=== PATIENT | female | born 1945 | race Caucasian/White ===

== ENCOUNTER → 2016-05-15 | Outpatient (CLI) | payer MEDICARE ==
[~2016-05-15] MED LIST: ASPI1TAB PO; BENA25TA PO; E-Z-PAQUE 96% w/w SUSP 176GM BTL As Ordered ONE; FISH100049 PO; GABA300C3 PO; GEMF600T PO; INSUH10VL SC; LEVE1INJ5 SC; LISI-538 PO; MAGN1TAB25 PO; METF1000 PO; METO50TA2 PO; MOBI15TA PO; PRAV1TAB39 PO; PRIL20CA PO; VITA10002 PO; VITA100066 PO
--- NOTE | 2016-05-16 13:33 | REP ---
Small bowel follow-through The procedure was performed under the direct supervision of Dr. Lozada. The images were reviewed with Dr. Lozada. The stacker and sorter operator film shows no organomegaly or pathological masses. The intestinal gas pattern is nonspecific. There are vascular calcifications identified. Liquid barium was administered and the barium column was followed through the small bowel to the level of the terminal ileum. Small bowel transit time is approximately 60 minutes. During fluoroscopy gentle palpation shows all loops are freely movable and pliable. There are no fixed or angulated loops. The small bowel mucosal pattern is normal in course and caliber. There is no transition to suggest a partial small bowel obstruction. Spot filming of the terminal ileum shows it to be unremarkable. Impression: Small bowel follow-through examination within normal limits. 27 seconds of fluoro time was utilized for this procedure. Reviewed by JOMAR Nance 05/15/2016 04:35 PSigned by Jong Lozada MD 05/16/2016 01:25 P
== END ==
LOC: M RAD 08:16
PROVIDERS: ATTEND Physician Assistant Medical
DX: D64.9 Anemia, unspecified (principal); R10.13 Epigastric pain

== ENCOUNTER → 2016-05-22 | Outpatient (CLI) | payer MEDICARE ==
[~2016-05-22] VITALS: Ht 157.5 cm; Wt 97.3 kg
[~2016-05-22] MED LIST changes: -BENA25TA PO; +BENA25TA9 PO; -E-Z-PAQUE 96% w/w SUSP 176GM BTL As Ordered ONE; +LABETALOL HCL 100 MG/20 ML VIAL As Ordered ONE; +LIDOCAINE 2% INJ 100 MG/5 ML SDV (FOR ANES.) As Ordered ONE; +NS 1,000 ML IV SCH; -PRIL20CA PO; +PRIL20CA9 PO; +PROPOFOL 200 MG/20 ML VIAL As Ordered ONE; +fentaNYL 100 MCG/2 ML INJECTION (J3010) As Ordered ONE
--- NOTE | 2016-05-22 07:50 | ROOR ---
Patient Name: Lenore Khan Procedure Date: 05/22/2016 7:31 AM Date of : 1945 Age: 71 Room: M OPP Gender: Female Note Status: Finalized Procedure: Upper GI endoscopy Indications: Epigastric abdominal pain, Heartburn Providers: Gabriel DHILLON MD Referring MD: GARIMA Pimentel Requesting Provider: Medicines: Monitored Anesthesia Care Complications: No immediate complications. Procedure: Pre-Anesthesia Assessment: - The heart rate, respiratory rate, oxygen saturations, blood pressure, adequacy of pulmonary ventilation, and response to care were monitored throughout the procedure. The Endoscope was introduced through the mouth, and advanced to the second part of duodenum. The upper GI endoscopy was accomplished without difficulty. The patient tolerated the procedure well. Findings: The esophagus was normal. The stomach was normal. The examined duodenum was normal. Impression: - Normal esophagus. - Normal stomach. - Normal examined duodenum. - No specimens collected. Recommendation: - Continue present medications. Gabriel Dhillon MD Gabriel DHILLON MD 05/22/2016 7:49:58 AM This report has been signed electronically. Number of Addenda: 0 Note Initiated On: 05/22/2016 7:31 AM Estimated Blood Loss: Estimated blood loss: none.
--- NOTE | 2016-05-22 08:04 | ROOR ---
Patient Name: Lenore Khan Procedure Date: 05/22/2016 7:32 AM Date of : 1945 Age: 71 Room: [facility] Gender: Female Note Status: Finalized Procedure: Colonoscopy Indications: High risk colon cancer surveillance: Personal history of colonic polyps, Incidental - Iron deficiency anemia Providers: Gabriel DHILLON MD Referring MD: GARIMA Pimentel Requesting Provider: Medicines: Monitored Anesthesia Care Complications: No immediate complications. Procedure: Pre-Anesthesia Assessment: - The heart rate, respiratory rate, oxygen saturations, blood pressure, adequacy of pulmonary ventilation, and response to care were monitored throughout the procedure. The Colonoscope was introduced through the anus and advanced to the cecum, identified by appendiceal orifice and ileocecal valve. The colonoscopy was performed without difficulty. The patient tolerated the procedure well. The quality of the bowel preparation was excellent. Findings: The perianal and digital rectal examinations were normal. Multiple medium-mouthed diverticula were found in the sigmoid colon. Small Internal Hemorrhoids. (Exam: Complete, Prep: Good or Excellent.) Impression: - (Exam: Complete, Prep: Good or Excellent.) - Mild to moderate diverticulosis in the sigmoid colon. - Small Internal Hemorrhoids. - Normal colonoscopy. - No specimens collected. Recommendation: - Repeat colonoscopy in 5 years for surveillance based on personal history of previous adenomatous polyps. Gabriel Dhillon MD Gabriel DHILLON MD 05/22/2016 8:03:34 AM This report has been signed electronically. Number of Addenda: 0 Note Initiated On: 05/22/2016 7:32 AM Estimated Blood Loss: Estimated blood loss: none.
[2016-05-22 08:35] VITALS: BP 165/86
== END | disposition home or self-care (01) ==
LOC: M OPP 06:42
PROVIDERS: ATTEND Internal Medicine Gastroenterology
DX: Z12.11 Encounter for screening for malignant neoplasm of colon (principal); K57.30 Diverticulosis of large intestine without perforation or abscess without bleeding; K64.8 Other hemorrhoids; R12 Heartburn; D50.9 Iron deficiency anemia, unspecified; I10 Essential (primary) hypertension; E10.9 Type 1 diabetes mellitus without complications; M19.90 Unspecified osteoarthritis, unspecified site; R01.1 Cardiac murmur, unspecified; M51.9 Unspecified thoracic, thoracolumbar and lumbosacral intervertebral disc disorder; Z87.891 Personal history of nicotine dependence; Z79.82 Long term (current) use of aspirin; Z79.899 Other long term (current) drug therapy; Z79.84 Long term (current) use of oral hypoglycemic drugs; Z79.4 Long term (current) use of insulin; Z91.048 Other nonmedicinal substance allergy status; Z91.040 Latex allergy status
CPT/HCPCS: 43235; G0105; J3010

== ENCOUNTER → 2016-08-11 | Outpatient (REF) | payer MEDICARE ==
[~2016-08-11] MED LIST changes: +GABA-282 PO; -GABA300C3 PO; -LABETALOL HCL 100 MG/20 ML VIAL As Ordered ONE; -LIDOCAINE 2% INJ 100 MG/5 ML SDV (FOR ANES.) As Ordered ONE; -NS 1,000 ML IV SCH; -PROPOFOL 200 MG/20 ML VIAL As Ordered ONE; -fentaNYL 100 MCG/2 ML INJECTION (J3010) As Ordered ONE
[2016-08-11 13:29] LABS: MEAN CORPUSCULAR HEMOGLOBIN 27.5 pg (27.0-33.0); MEAN CORPUSCULAR HGB CONC 32.6 g/dl (32.0-36.5); MEAN CORPUSCULAR VOLUME 84.3 fl (80.0-96.0); RED CELL DISTRIBUTION WIDTH 13.2 % (11.5-14.5); WHITE BLOOD COUNT 5.6 K/mm3 (4.0-10.0)
[2016-08-11 13:38] LABS: ALBUMIN 3.7 GM/DL (3.2-5.2); ALBUMIN/GLOBULIN RATIO 1.19 (1.00-1.93); ALKALINE PHOSPHATASE 84 U/L (45-117); ALT/SGPT 18 U/L (12-78); ANION GAP 9 MEQ/L (8-16); AST/SGOT 11 U/L (15-37); BILIRUBIN,TOTAL 0.1 MG/DL (0.2-1.0); BLOOD UREA NITROGEN 32 MG/DL (7-18); CALCIUM LEVEL 9.5 MG/DL (8.8-10.2); CARBON DIOXIDE LEVEL 23 MEQ/L (21-32); CHLORIDE LEVEL 106 MEQ/L (98-107); CREATININE FOR GFR 0.84 MG/DL (0.55-1.02); FERRITIN 29 NG/ML (8-252); GLOMERULAR FILTRATION RATE > 60.0 (>39); GLUCOSE, FASTING 220 MG/DL (83-110); PERCENT SATURATION 12.9 % (13.2-37.4); SODIUM LEVEL 138 MEQ/L (136-145); TOTAL IRON BINDING CAPACITY 566 UG/DL (250-450); TOTAL PROTEIN 6.8 GM/DL (6.4-8.2)
[2016-08-11 13:52] LABS: POTASSIUM SERUM 5.3 MEQ/L (3.5-5.1)
== END ==
LOC: M SFHCADAM 10:00
PROVIDERS: ATTEND Physician Assistant
DX: D64.9 Anemia, unspecified (principal); E78.4 Other hyperlipidemia; E11.21 Type 2 diabetes mellitus with diabetic nephropathy

== ENCOUNTER → 2016-09-15 | Outpatient (CLI) | payer MEDICARE ==
--- NOTE | 2016-09-15 12:22 | REPMRS ---
Patient History The patient states she has not had a clinical breast exam in over a year. Patient is postmenopausal. No known family history of cancer. Benign stereotatic breast biopsy of the left breast. Digital Woman Screen Mammo: September 15, 2016 - Exam #: [id number] Bilateral CC and MLO view(s) were taken. Technologist: Lenore Brock, Technologist Prior study comparison: September 03, 2015, digital woman screen mammo performed at [facility]. September 09, 2013, digital woman screen mammo performed at [facility] to [facility]. FINDINGS: There are scattered fibroglandular densities. There has been no change in the appearance of the mammogram from the prior studies. There is a mild amount of residual fibroglandular tissue which is fairly symmetric. There is no interval development of dominant mass, architectural distortion, or clustered microcalcification suggestive of malignancy. ASSESSMENT: BI-RADS/ACR category 1 mammogram. Negative. Recommendation Routine screening mammogram in 1 year (for women over age 40). This mammogram was interpreted with the aid of an FDA-approved computer-aided dectection system. Electronically Signed By: Jong Lozada MD 09/15/16 [id number]
== END ==
LOC: M WHC 10:42
PROVIDERS: ATTEND Physician Assistant
DX: Z12.31 Encounter for screening mammogram for malignant neoplasm of breast (principal)

== ENCOUNTER → 2017-05-21 | Outpatient (REF) | payer MEDICARE ==
[2017-05-21 13:15] LABS: HEMATOCRIT 35.1 % (36.0-47.0); HEMOGLOBIN 11.3 g/dl (12.0-16.0); MEAN CORPUSCULAR HEMOGLOBIN 27.6 pg (27.0-33.0); MEAN CORPUSCULAR HGB CONC 32.2 g/dl (32.0-36.5); MEAN CORPUSCULAR VOLUME 85.6 fl (80.0-96.0); PLATELET COUNT, AUTOMATED 336 10^3/uL (150-450); RED CELL DISTRIBUTION WIDTH 12.5 % (11.5-14.5)
[2017-05-21 14:00] LABS: TOTAL 25(OH) VITAMIN D 38.4 NG/ML (30.0-100.0); VITAMIN B12 LEVEL 681 PG/ML
[2017-05-21 14:01] LABS: FOLATE 21.5 NG/ML
[2017-05-21 14:06] LABS: MAU/CREAT RATIO 171.5 MCG/MG (0.0-30.0)
[2017-05-21 14:17] LABS: ALBUMIN 4.1 GM/DL (3.2-5.2); ALBUMIN/GLOBULIN RATIO 1.21 (1.00-1.93); ALKALINE PHOSPHATASE 85 U/L (45-117); ALT/SGPT 19 U/L (12-78); ANION GAP 7 MEQ/L (8-16); AST/SGOT 13 U/L (7-37); BILIRUBIN,TOTAL 0.2 MG/DL (0.2-1.0); BLOOD UREA NITROGEN 31 MG/DL (7-18); CALCIUM LEVEL 10.1 MG/DL (8.8-10.2); CARBON DIOXIDE LEVEL 26 MEQ/L (21-32); CHLORIDE LEVEL 108 MEQ/L (98-107); CHOLESTEROL LEVEL 222 MG/DL (<200); CREATININE FOR GFR 0.75 MG/DL (0.55-1.02); FREE T4 0.95 NG/DL (0.76-1.46); GLOMERULAR FILTRATION RATE > 60.0 (>39); GLUCOSE, FASTING 169 MG/DL (83-110); HDL CHOLESTEROL 60 MG/DL (>40); LDL CHOLESTEROL 116.6 MG/DL (<100); NON-HDL-C 162 MG/DL; SODIUM LEVEL 141 MEQ/L (136-145); TOTAL PROTEIN 7.5 GM/DL (6.4-8.2); TRIGLYCERIDES LEVEL 227 MG/DL (<150)
[2017-05-21 14:24] LABS: POTASSIUM SERUM 5.2 MEQ/L (3.5-5.1)
[2017-05-21 14:55] LABS: ESTIMATED AVERAGE GLUCOSE 171 MG/DL (60-110); HEMOGLOBIN A1c 7.6 %
== END ==
LOC: M SFHCADAM 09:56
DX: E11.42 Type 2 diabetes mellitus with diabetic polyneuropathy (principal); E78.4 Other hyperlipidemia; I11.9 Hypertensive heart disease without heart failure; Z13.820 Encounter for screening for osteoporosis; M15.0 Primary generalized (osteo)arthritis; E55.9 Vitamin D deficiency, unspecified
CPT/HCPCS: 82746

== ENCOUNTER 2017-05-25 10:01 | Emergency (ER) | payer MEDICARE ==
[2017-05-25 11:45] LABS: INR 0.95; PROTHROMBIN TIME 12.8 SECONDS (12.4-14.5)
[2017-05-25 11:46] LABS: PARTIAL THROMBOPLASTIN TIME 27.5 SECONDS (26.8-37.9)
[2017-05-25 11:48] LABS: BASO % 0.3 % (0.0-1.0); EOS # 0.2 10^3/uL (0.0-0.50); EOS % 2.1 % (0.0-3.0); HEMOGLOBIN 10.6 g/dl (12.0-16.0); IMMATURE GRANULOCYTE % 0.3 % (0-0); LYMPH # 2.1 10^3/uL (1.5-4.5); MEAN CORPUSCULAR HEMOGLOBIN 27.6 pg (27.0-33.0); MEAN CORPUSCULAR HGB CONC 33.1 g/dl (32.0-36.5); MEAN CORPUSCULAR VOLUME 83.3 fl (80.0-96.0); MONO # 0.4 10^3/uL (0.0-0.8); MONO % 4.6 % (0.0-5.0); NEUTROPHILS # 6.3 10^3/uL (1.8-7.7); NEUTROPHILS % 69.7 % (36.0-66.0); PLATELET COUNT, AUTOMATED 298 10^3/uL (150-450); RED BLOOD COUNT 3.84 10^6/uL (4.00-5.40); RED CELL DISTRIBUTION WIDTH 12.7 % (11.5-14.5)
[2017-05-25 11:53] LABS: LACTIC ACID SEPSIS PROTOCOL 1.3 MMOL/L (0.4-2.0)
[2017-05-25 11:54] LABS: ALBUMIN 3.6 GM/DL (3.2-5.2); ALBUMIN/GLOBULIN RATIO 1.09 (1.00-1.93); ALKALINE PHOSPHATASE 75 U/L (45-117); ALT/SGPT 15 U/L (12-78); ANION GAP 8 MEQ/L (8-16); AST/SGOT 8 U/L (7-37); BILIRUBIN,DIRECT < 0.1 MG/DL (0.0-0.2); BILIRUBIN,TOTAL 0.1 MG/DL (0.2-1.0); BLOOD UREA NITROGEN 32 MG/DL (7-18); CALCIUM LEVEL 9.8 MG/DL (8.8-10.2); CARBON DIOXIDE LEVEL 22 MEQ/L (21-32); CHLORIDE LEVEL 109 MEQ/L (98-107); CREATININE FOR GFR 0.78 MG/DL (0.55-1.02); GLOMERULAR FILTRATION RATE > 60.0 (>39); GLUCOSE, FASTING 221 MG/DL (83-110); LIPASE 241 U/L (73-393); POTASSIUM SERUM 5.1 MEQ/L (3.5-5.1); SODIUM LEVEL 139 MEQ/L (136-145); TOTAL PROTEIN 6.9 GM/DL (6.4-8.2)
[2017-05-25] MEDS ORDERED: ISOVUE-370 76% 100ML VIAL (Q9967) As Ordered (11:59)
[2017-05-25 12:38] LABS: KETONE, URINE AUTO RFX NEGATIVE (NEGATIVE); MUCUS, URINE RFX SMALL (NEGATIVE); NITRITE, URINE AUTO RFX NEGATIVE (NEGATIVE); RBC, URINE AUTO RFX 1 /HPF (0-3); SQUAM EPITHELIAL CELL UR AURFX 0 /HPF (0-6); WBC, URINE AUTO RFX 8 /HPF (0-3)
[2017-05-25 12:39] LABS: LEUKOCYTE ESTERASE UR AUTO RFX 1+ (NEGATIVE)
[2017-05-25] MEDS: KETOROLAC 30 MG/ML VIAL (J1885) IV (14:00)
== END 2017-05-25 14:59 | disposition home or self-care (01) ==
LOC: M ED 10:01
DX: R10.9 Unspecified abdominal pain (principal); R00.1 Bradycardia, unspecified; K76.0 Fatty (change of) liver, not elsewhere classified; K57.30 Diverticulosis of large intestine without perforation or abscess without bleeding; E11.9 Type 2 diabetes mellitus without complications; I10 Essential (primary) hypertension; M19.90 Unspecified osteoarthritis, unspecified site; Z79.84 Long term (current) use of oral hypoglycemic drugs; Z79.4 Long term (current) use of insulin; Z79.899 Other long term (current) drug therapy; Z79.82 Long term (current) use of aspirin; Z91.040 Latex allergy status; Z91.018 Allergy to other foods; Z86.79 Personal history of other diseases of the circulatory system; Z98.890 Other specified postprocedural states; Z87.891 Personal history of nicotine dependence; Z82.49 Family history of ischemic heart disease and other diseases of the circulatory system; Z84.1 Family history of disorders of kidney and ureter; Z82.3 Family history of stroke
CPT/HCPCS: Q9967

== ENCOUNTER → 2017-09-21 | Outpatient (CLI) | payer MEDICARE | LOC: M WHC 08:34 | DX: Z12.31 Encounter for screening mammogram for malignant neoplasm of breast (principal); Z13.820 Encounter for screening for osteoporosis; M85.852 Other specified disorders of bone density and structure, left thigh; M85.851 Other specified disorders of bone density and structure, right thigh | CPT/HCPCS: 77067 ==

== ENCOUNTER → 2017-12-24 | Outpatient (REF) | payer MEDICARE ==
[2017-12-24 19:59] LABS: ALBUMIN 3.9 GM/DL (3.2-5.2); ALBUMIN/GLOBULIN RATIO 1.11 (1.00-1.93); ALKALINE PHOSPHATASE 68 U/L (45-117); ALT/SGPT 20 U/L (12-78); ANION GAP 9 MEQ/L (8-16); AST/SGOT 10 U/L (7-37); BILIRUBIN,TOTAL 0.2 MG/DL (0.2-1.0); BLOOD UREA NITROGEN 29 MG/DL (7-18); CALCIUM LEVEL 9.6 MG/DL (8.8-10.2); CARBON DIOXIDE LEVEL 25 MEQ/L (21-32); CHLORIDE LEVEL 110 MEQ/L (98-107); CREATININE FOR GFR 0.83 MG/DL (0.55-1.30); GLOMERULAR FILTRATION RATE > 60.0 (>39); GLUCOSE, FASTING 118 MG/DL (70-100); POTASSIUM SERUM 5.1 MEQ/L (3.5-5.1); SODIUM LEVEL 144 MEQ/L (136-145); TOTAL PROTEIN 7.4 GM/DL (6.4-8.2)
[2017-12-24 20:06] LABS: HEMATOCRIT 36.3 % (36.0-47.0); HEMOGLOBIN 11.3 g/dl (12.0-15.5); MEAN CORPUSCULAR HEMOGLOBIN 26.5 pg (27.0-33.0); MEAN CORPUSCULAR HGB CONC 31.1 g/dl (32.0-36.5); MEAN CORPUSCULAR VOLUME 85.2 fl (80.0-96.0); PLATELET COUNT, AUTOMATED 321 10^3/uL (150-450); RED BLOOD COUNT 4.26 10^6/uL (4.00-5.40); RED CELL DISTRIBUTION WIDTH 13.2 % (11.5-14.5)
[2017-12-24 20:14] LABS: FOLATE > 24.0 NG/ML; VITAMIN B12 LEVEL 616 PG/ML
[2017-12-24 20:18] LABS: ESTIMATED AVERAGE GLUCOSE 166 MG/DL (60-110); HEMOGLOBIN A1c 7.4 %
== END ==
LOC: M SFHCADAM 11:46
DX: E11.42 Type 2 diabetes mellitus with diabetic polyneuropathy (principal); E78.4 Other hyperlipidemia; D51.8 Other vitamin B12 deficiency anemias
CPT/HCPCS: 82746

== ENCOUNTER → 2018-01-25 | Outpatient (REF) | payer MEDICARE | LOC: M LAB REF 12:22 | DX: R35.0 Frequency of micturition (principal) | CPT/HCPCS: 87086 ==

== ENCOUNTER → 2018-03-23 | Outpatient (REF) | payer MEDICARE ==
[2018-03-23 19:09] LABS: ANION GAP 10 MEQ/L (8-16); BLOOD UREA NITROGEN 36 MG/DL (7-18); CALCIUM LEVEL 10.3 MG/DL (8.8-10.2); CARBON DIOXIDE LEVEL 24 MEQ/L (21-32); CHLORIDE LEVEL 105 MEQ/L (98-107); CREATININE FOR GFR 1.07 MG/DL (0.55-1.30); GLOMERULAR FILTRATION RATE 53.4 (>39); GLUCOSE, FASTING 121 MG/DL (70-100); POTASSIUM SERUM 4.9 MEQ/L (3.5-5.1); SODIUM LEVEL 139 MEQ/L (136-145)
[2018-03-23 19:43] LABS: ESTIMATED AVERAGE GLUCOSE 174 MG/DL (60-110); HEMOGLOBIN A1c 7.7 %
== END ==
LOC: M SFHCADAM 11:38
DX: E11.42 Type 2 diabetes mellitus with diabetic polyneuropathy (principal); I11.9 Hypertensive heart disease without heart failure
CPT/HCPCS: 83036

== ENCOUNTER → 2018-06-16 | Outpatient (REF) | payer MEDICARE ==
[~2018-06-16] MED LIST changes: +BENA25TA10 PO; -BENA25TA9 PO; -GABA-282 PO; +GABA-843 PO; -GEMF600T PO; +GEMF600T5 PO; +HUMA100I3 SC; -METF1000 PO; +METF10004 PO; -METO50TA2 PO; +METO50TA7 PO
[2018-06-16 13:23] LABS: BLOOD UREA NITROGEN 36 MG/DL (7-18); CALCIUM LEVEL 10.4 MG/DL (8.8-10.2); CARBON DIOXIDE LEVEL 24 MEQ/L (21-32); CHLORIDE LEVEL 104 MEQ/L (98-107); CREATININE FOR GFR 0.89 MG/DL (0.55-1.30); GLOMERULAR FILTRATION RATE > 60.0 (>39); GLUCOSE, FASTING 250 MG/DL (70-100); POTASSIUM SERUM 4.7 MEQ/L (3.5-5.1); SODIUM LEVEL 137 MEQ/L (136-145)
[2018-06-16 13:24] LABS: ALBUMIN 3.9 GM/DL (3.2-5.2); ALT/SGPT 20 U/L (12-78); BILIRUBIN,TOTAL 0.2 MG/DL (0.2-1.0); TOTAL PROTEIN 6.9 GM/DL (6.4-8.2)
[2018-06-16 13:32] LABS: HEMOGLOBIN A1c 6.9 %
== END ==
LOC: M SFHCADAM 09:01
PROVIDERS: ATTEND Physician Assistant
DX: E11.42 Type 2 diabetes mellitus with diabetic polyneuropathy (principal); I11.9 Hypertensive heart disease without heart failure; G62.9 Polyneuropathy, unspecified

== ENCOUNTER → 2019-01-03 | Outpatient (REF) | payer MEDICARE ==
[~2019-01-03] MED LIST changes: -ASPI1TAB PO; +ASPI81TA26 PO; +CYAN100049 PO; -MAGN1TAB25 PO; +MAGN1TAB26 PO; -VITA10002 PO
[2019-01-03 13:40] LABS: ALBUMIN 3.8 GM/DL (3.2-5.2); BILIRUBIN,TOTAL 0.2 MG/DL (0.2-1.0); CALCIUM LEVEL 10.4 MG/DL (8.8-10.2); CHOLESTEROL RISK RATIO 4.102 (<5); CREATININE FOR GFR 0.98 MG/DL (0.55-1.30); FREE T4 0.92 NG/DL (0.76-1.46); GLOMERULAR FILTRATION RATE 58.9 (>39); POTASSIUM SERUM 4.8 MEQ/L (3.5-5.1); THYROID STIMULATING HORMONE 0.901 uIU/ML (0.358-3.740); TOTAL 25(OH) VITAMIN D 31.5 NG/ML (30.0-100.0); TOTAL PROTEIN 7.1 GM/DL (6.4-8.2)
[2019-01-03 13:58] LABS: HEMOGLOBIN A1c 7.2 %
== END ==
LOC: M SFHCADAM 09:00
PROVIDERS: ATTEND Physician Assistant
DX: E78.49 Other hyperlipidemia (principal); E11.42 Type 2 diabetes mellitus with diabetic polyneuropathy; E55.9 Vitamin D deficiency, unspecified

== ENCOUNTER → 2019-06-09 | Outpatient (REF) | payer OTHER ==
[2019-06-09 13:12] LABS: ALBUMIN 4.2 GM/DL (3.2-5.2); ALT/SGPT 18 U/L (12-78); BILIRUBIN,TOTAL 0.2 MG/DL (0.2-1.0); BLOOD UREA NITROGEN 40 MG/DL (7-18); CALCIUM LEVEL 10.8 MG/DL (8.8-10.2); CARBON DIOXIDE LEVEL 25 MEQ/L (21-32); CHLORIDE LEVEL 106 MEQ/L (98-107); CREATININE FOR GFR 0.95 MG/DL (0.55-1.30); GLOMERULAR FILTRATION RATE > 60.0 (>39); GLUCOSE, FASTING 116 MG/DL (70-100); POTASSIUM SERUM 5.1 MEQ/L (3.5-5.1); SODIUM LEVEL 139 MEQ/L (136-145); TOTAL PROTEIN 7.5 GM/DL (6.4-8.2)
[2019-06-09 14:07] LABS: HEMOGLOBIN A1c 7.1 %
== END ==
LOC: M SFHCADAM 11:25
PROVIDERS: ATTEND Physician Assistant
DX: E11.21 Type 2 diabetes mellitus with diabetic nephropathy (principal); E11.42 Type 2 diabetes mellitus with diabetic polyneuropathy

== ENCOUNTER → 2019-06-16 | Outpatient (REF) | payer OTHER ==
[2019-06-16 15:06] LABS: ALBUMIN 4.1 GM/DL (3.2-5.2); BILIRUBIN,TOTAL 0.2 MG/DL (0.2-1.0); CALCIUM LEVEL 9.8 MG/DL (8.8-10.2); CREATININE FOR GFR 1.01 MG/DL (0.55-1.30); GLOMERULAR FILTRATION RATE 56.7 (>39); POTASSIUM SERUM 4.6 MEQ/L (3.5-5.1); TOTAL PROTEIN 7.5 GM/DL (6.4-8.2)
[2019-06-16 15:11] LABS: FREE T4 0.99 NG/DL (0.76-1.46); THYROID STIMULATING HORMONE 0.978 uIU/ML (0.358-3.740)
[2019-06-17 11:41] LABS: PTH INTACT 63.8 PG/ML (18.5-88.0); TOTAL 25(OH) VITAMIN D 23.8 NG/ML (30.0-100.0)
== END ==
LOC: M SFHCADAM 09:29
PROVIDERS: ATTEND Physician Assistant
DX: E83.52 Hypercalcemia (principal); E55.9 Vitamin D deficiency, unspecified; E11.21 Type 2 diabetes mellitus with diabetic nephropathy
CPT/HCPCS: 80053; 82306; 83970; 84439; 84443; G0463

== ENCOUNTER → 2019-09-02 | Outpatient (REF) | payer OTHER | LOC: M SFHCADAM 13:11 | PROVIDERS: ATTEND Physician Assistant | DX: R10.32 Left lower quadrant pain (principal) ==

== ENCOUNTER → 2019-09-02 | Outpatient (CLI) | payer OTHER ==
[~2019-09-02] MED LIST changes: +GASTROGRAFIN SOLUTION 30ML (Q9963) As Ordered ONE; +ISOVUE-370 76% 100ML VIAL As Ordered ONE
[2019-09-02 12:16] LABS: BASO # 0.1 10^3/uL (0.0-0.2); BASO % 0.7 % (0.0-1.0); EOS # 0.4 10^3/uL (0.0-0.5); EOS % 3.9 % (0.0-3.0); HEMATOCRIT 37.6 % (36.0-47.0); HEMOGLOBIN 12.3 g/dl (12.0-15.5); LYMPH # 2.8 10^3/uL (1.5-5.0); LYMPH % 30.9 % (24.0-44.0); MEAN CORPUSCULAR HEMOGLOBIN 28.7 pg (27.0-33.0); MEAN CORPUSCULAR HGB CONC 32.7 g/dl (32.0-36.5); MEAN CORPUSCULAR VOLUME 87.6 fl (80.0-96.0); MONO # 0.4 10^3/uL (0.0-0.8); MONO % 4.5 % (0.0-5.0); NEUTROPHILS # 5.4 10^3/uL (1.5-8.5); NEUTROPHILS % 59.4 % (36.0-66.0); PLATELET COUNT, AUTOMATED 347 10^3/uL (150-450); RED BLOOD COUNT 4.29 10^6/uL (4.00-5.40)
[2019-09-02 12:42] LABS: ALBUMIN 4.2 GM/DL (3.2-5.2); BILIRUBIN,TOTAL 0.2 MG/DL (0.2-1.0); CALCIUM LEVEL 10.5 MG/DL (8.8-10.2); CREATININE FOR GFR 1.08 MG/DL (0.55-1.30); GLOMERULAR FILTRATION RATE 52.5 (>39); POTASSIUM SERUM 5.1 MEQ/L (3.5-5.1)
--- NOTE | 2019-09-02 17:55 | REP ---
CT ABDOMEN/PELVIS WITH ORAL AND IV CONTRAST: TECHNIQUE: Axial contrast enhanced images from the lung bases to the pubic symphysis using 100 mL Isovue 370 intravenous contrast material with multiplanar reformations. COMPARISON: 05/25/2017 No infiltrate is seen in the visualized lung bases. There appears to be some mild fatty infiltration of the liver along the gallbladder fossa. Spleen is normal in size with no intrinsic abnormality. The adrenal glands are unremarkable. The pancreas is unremarkable. There is no hydroureteronephrosis. Small cyst is seen in the lower pole of the right kidney. There is mild atherosclerotic calcification of the abdominal aorta without aneurysm. There is no adenopathy. There is no free air or free fluid. No bowel wall thickening is seen. There is sigmoid diverticulosis without acute diverticulitis. There is no pelvic mass. The patient has had a hysterectomy. There is mild distention of the urinary bladder which appears grossly unremarkable. There are degenerative changes of the spine. IMPRESSION: No acute intra-abdominal abnormality, as discussed above. Electronically Signed by Jong Lozada MD 09/02/2019 07:28 P
== END ==
LOC: M RAD 11:42
PROVIDERS: ATTEND Physician Assistant
DX: K57.30 Diverticulosis of large intestine without perforation or abscess without bleeding (principal); N28.1 Cyst of kidney, acquired; R10.32 Left lower quadrant pain
CPT/HCPCS: 36415; 74177; 80053; 85025; 87086; Q9963; Q9967

== ENCOUNTER → 2019-09-07 | Outpatient (CLI) | payer OTHER ==
[~2019-09-07] MED LIST changes: -GASTROGRAFIN SOLUTION 30ML (Q9963) As Ordered ONE; -ISOVUE-370 76% 100ML VIAL As Ordered ONE
--- NOTE | 2019-09-07 11:50 | REP ---
LUMBAR SPINE SERIES: Five views. HISTORY: Lumbar pain. FINDINGS: There is a mild levoconvex curvature in the lumbar spine on the AP radiograph. There is advanced degenerative disc disease with spurring at the L2-3 level. This has progressed considerably since the October 25, 2012 prior study. Lumbar vertebral body heights are preserved. The previous study demonstrated a degenerative L4-5 spondylolisthesis. This is not seen on today's radiographs. There is a mild retrolisthesis grade 1 at L5-S1 today, 3 mm in diameter. There are degenerative disc changes at L4-5 L3-4 L2-3 and L1-2. A vacuum phenomenon is visible at the L2-3 and L3-4 disc space levels. Vascular calcification is noted in a normal caliber aorta. No bony destructive lesion is seen. Sacrum and SI joints are intact. Facet hypertrophy and joint space narrowing is visible bilaterally at L4-5 and L5-S1. IMPRESSION: Progressive degenerative disc changes most pronounced at the L2-3 and L5-S1. There is a mild retrolisthesis L5-S1. The previously noted L4-5 spondylolisthesis is not apparent today. Electronically Signed by Filiberto Dominguez MD 09/07/2019 11:52 A
== END ==
LOC: M ADAMS 08:37
PROVIDERS: ATTEND Physician Assistant
DX: M51.36 Other intervertebral disc degeneration, lumbar region (principal); M51.37 Other intervertebral disc degeneration, lumbosacral region; M25.78 Osteophyte, vertebrae; M54.5 Low back pain

== ENCOUNTER → 2019-09-07 | Outpatient (REF) | payer OTHER ==
[2019-09-07 13:22] LABS: C REACTIVE PROTEIN QUANTITATIV 0.84 MG/DL (0.00-0.30)
[2019-09-07 13:34] LABS: APPEARANCE, URINE CLEAR (CLEAR); BACTERIA, URINE AUTO NEGATIVE (NEGATIVE); BILIRUBIN, URINE AUTO NEGATIVE (NEGATIVE); BLOOD, URINE BLOOD NEGATIVE (NEGATIVE); COLOR, URINE YELLOW (YELLOW); GLUCOSE, URINE (UA) AUTO 3+ mg/dL (NEGATIVE); KETONE, URINE AUTO NEGATIVE (NEGATIVE); LEUKOCYTE ESTERASE, URINE AUTO 1+ (NEGATIVE); NITRITE, URINE AUTO NEGATIVE (NEGATIVE); PROTEIN, URINE AUTO NEGATIVE (NEGATIVE); PTH INTACT 68.2 PG/ML (18.5-88.0); RBC, URINE AUTO 0 /HPF (0-3); SPECIFIC GRAVITY URINE AUTO 1.015 (1.002-1.035); SQUAMOUS EPITHELIAL CELL UR AU 0 /HPF (0-6); TOTAL 25(OH) VITAMIN D 24.9 NG/ML (30.0-100.0); UROBILINOGEN, URINE AUTO 0.2 mg/dL (0.0-2.0); WBC, URINE AUTO 2 /HPF (0-3)
[2019-09-09 00:06] LABS: FREE KAPPA LIGHT CHAINS SERUM 11.9 mg/L (3.3-19.4); KAPPA/LAMBDA RATIO SERUM 1.32 (0.26-1.65)
== END ==
LOC: M SFHCADAM 08:23
PROVIDERS: ATTEND Physician Assistant
DX: M54.5 Low back pain (principal); E83.52 Hypercalcemia

== ENCOUNTER → 2019-09-19 | Outpatient (REF) | payer OTHER | LOC: M LAB REF 18:04 | PROVIDERS: ATTEND Dermatology | DX: C44.722 Squamous cell carcinoma of skin of right lower limb, including hip (principal) ==

== ENCOUNTER → 2019-09-20 | Outpatient (REF) | payer OTHER ==
[2019-09-20 18:11] LABS: C REACTIVE PROTEIN QUANTITATIV < 0.30 MG/DL (0.00-0.30); CHOLESTEROL LEVEL 203 MG/DL (<200); HDL CHOLESTEROL 51 MG/DL (>40); HEMATOCRIT 35.9 % (36.0-47.0); HEMOGLOBIN 11.4 g/dl (12.0-15.5); MEAN CORPUSCULAR HEMOGLOBIN 28.5 pg (27.0-33.0); MEAN CORPUSCULAR HGB CONC 31.8 g/dl (32.0-36.5); MEAN CORPUSCULAR VOLUME 89.8 fl (80.0-96.0); NON-HDL-C 152 MG/DL; PLATELET COUNT, AUTOMATED 295 10^3/uL (150-450); TRIGLYCERIDES LEVEL 456 MG/DL (<150); WHITE BLOOD COUNT 7.4 10^3/uL (4.0-10.0)
[2019-09-20 18:29] LABS: HEMOGLOBIN A1c 7.7 %
[2019-09-20 19:53] LABS: ERYTHROCYTE SEDIMENTATION RATE 52 mm/hr (0-30)
[2019-09-23 00:10] LABS: FREE KAPPA LIGHT CHAINS SERUM 13.4 mg/L (3.3-19.4); FREE LAMBDA LIGHT CHAINS SERUM 10.9 mg/L (5.7-26.3); KAPPA/LAMBDA RATIO SERUM 1.23 (0.26-1.65)
== END ==
LOC: M SFHCADAM 13:43
PROVIDERS: ATTEND Physician Assistant
DX: R10.32 Left lower quadrant pain (principal); E11.21 Type 2 diabetes mellitus with diabetic nephropathy; E55.9 Vitamin D deficiency, unspecified; R79.82 Elevated C-reactive protein (CRP); M51.36 Other intervertebral disc degeneration, lumbar region

== ENCOUNTER → 2019-10-05 | Outpatient (CLI) | payer OTHER ==
[~2019-10-05] MED LIST changes: +PROHANCE 279.3MG/ML 15ML VIAL As Ordered ONE
--- NOTE | 2019-10-06 09:54 | REP ---
MRI LUMBAR SPINE WITHOUT CONTRAST FOLLOWED BY WITH CONTRAST: HISTORY: Low back pain. Lumbar radicular pain. Elevated sed rate. Comparison lumbar spine radiographs are from September 07, 2019. Comparison MRI study October 12, 2015. TECHNIQUE: Sagittal and axial T1- and T2-weighted scans are acquired in the usual fashion with and without fat saturation. Sequences include spin echo, turbo spin-echo, and STIR imaging sequences. Gadolinium enhancement dose is 8 mL of intravenous ProHance. MRI FINDINGS: Lumbar vertebral body heights are preserved. There is some straightening. Degenerative spondylosis changes are again noted. The tip of the conus medullaris is normal in position and appearance at T12-L1. No extra vertebral abnormality is observed. Normal caliber aorta is seen. Axial and sagittal images taken at L1-L2 disc level show minimal disc bulging effacing the ventral subarachnoid space. No spinal stenosis or foraminal narrowing is seen. L2-L3, there is degenerative narrowing of the disc, a 2 mm retrolisthesis, and diffuse disc bulging. There is posterior osteophytic ridging. There is right neural foraminal narrowing due to a right foraminal disc bulge. This appears slightly more prominent today compared to the 2016 prior MRI study. No spinal stenosis is seen. There is minimal facet and ligamentum flavum hypertrophy. At L3-L4, there is degenerative disc narrowing. Mild central canal stenosis is present due to diffuse disc bulging, ligamentum flavum hypertrophy, and mild facet hypertrophy. There is mild bilateral neural foraminal narrowing due to disc bulging and facet hypertrophy. The mid line AP dimension of the thecal sac at L3-4 is 8 mm. The L3-4 findings are felt to be unchanged from the 2016 exam. At L4-5, there is a degenerative 4 mm spondylolisthesis. No spondylolysis is seen. There is moderate central canal stenosis due to diffuse disc bulging, prominent facet and ligamentum flavum hypertrophy, and the listhesis. No nerve root compression is visible. Midline AP dimension of the thecal sac L4-5 is 8 mm. At L5-S1, there is mild diffuse disc bulging. Moderate facet hypertrophy is present bilaterally. There is left-sided neural foraminal narrowing due to disc bulging, discogenic spurring, and facet hypertrophy. The central canal is mildly narrowed and L5-S1. Left-sided foraminal narrowing at L5-S1 is a little more prominent. Post gadolinium enhanced sequence demonstrates mild enhancement along the right foraminal disc bulging at L2-3 where there is foraminal narrowing. IMPRESSION: Degenerative spondylosis changes somewhat more advanced than on the 2016 study with multilevel neural foraminal narrowing as above including left L5-S1 and right L2-3. Electronically Signed by Filiberto Dominguez MD 10/06/2019 10:00 A
== END ==
LOC: M RAD 15:19
PROVIDERS: ATTEND Physician Assistant
DX: M51.16 Intervertebral disc disorders with radiculopathy, lumbar region (principal); M47.26 Other spondylosis with radiculopathy, lumbar region
CPT/HCPCS: 72158; A9576

== ENCOUNTER → 2019-10-17 | Outpatient (REF) | payer OTHER ==
[~2019-10-17] MED LIST changes: -PROHANCE 279.3MG/ML 15ML VIAL As Ordered ONE
== END ==
LOC: M LAB REF 13:00
PROVIDERS: ATTEND Dermatology
DX: L90.5 Scar conditions and fibrosis of skin (principal)

== ENCOUNTER → 2019-11-17 | Outpatient (REF) | payer OTHER | LOC: M LAB REF 17:32 | PROVIDERS: ATTEND Dermatology | DX: Z94.5 Skin transplant status (principal) ==

== ENCOUNTER → 2020-03-30 | Outpatient (REF) | payer OTHER ==
[2020-03-30 13:18] LABS: CALCIUM LEVEL 10.2 MG/DL (8.8-10.2); CREATININE FOR GFR 1.24 MG/DL (0.55-1.30); GLOMERULAR FILTRATION RATE 44.8 (>39); POTASSIUM SERUM 4.9 MEQ/L (3.5-5.1)
[2020-03-30 13:19] LABS: BILIRUBIN,TOTAL 0.1 MG/DL (0.2-1.0); CHOLESTEROL RISK RATIO 3.875 (<5); TOTAL PROTEIN 7.4 GM/DL (6.4-8.2)
[2020-03-30 13:50] LABS: HEMOGLOBIN A1c 7.1 %
== END ==
LOC: M LAB REF 12:47 → M LABDRWAD 12:47
PROVIDERS: ATTEND Physician Assistant
DX: E11.9 Type 2 diabetes mellitus without complications (principal); E78.5 Hyperlipidemia, unspecified; I11.9 Hypertensive heart disease without heart failure

== ENCOUNTER → 2020-04-10 | Outpatient (REF) | payer OTHER | LOC: M SFHCADAM 12:29 | PROVIDERS: ATTEND Physician Assistant | DX: R19.7 Diarrhea, unspecified (principal) ==

== ENCOUNTER → 2020-05-01 | Outpatient (REF) | payer OTHER ==
[2020-05-01 12:39] LABS: BASO # 0.1 10^3/uL (0.0-0.2); BASO % 0.9 % (0.0-1.0); EOS # 1.3 10^3/uL (0.0-0.5); EOS % 15.5 % (0.0-3.0); HEMATOCRIT 36.1 % (36.0-47.0); LYMPH # 2.6 10^3/uL (1.5-5.0); LYMPH % 32.1 % (24.0-44.0); MEAN CORPUSCULAR HEMOGLOBIN 27.2 pg (27.0-33.0); MEAN CORPUSCULAR HGB CONC 30.5 g/dl (32.0-36.5); MEAN CORPUSCULAR VOLUME 89.4 fl (80.0-96.0); MONO # 0.4 10^3/uL (0.0-0.8); MONO % 5.3 % (0.0-5.0); NEUTROPHILS # 3.7 10^3/uL (1.5-8.5); NEUTROPHILS % 45.3 % (36.0-66.0); PLATELET COUNT, AUTOMATED 291 10^3/uL (150-450); RED BLOOD COUNT 4.04 10^6/uL (4.00-5.40); WHITE BLOOD COUNT 8.1 10^3/uL (4.0-10.0)
[2020-05-01 13:10] LABS: ALBUMIN 3.8 GM/DL (3.2-5.2); BILIRUBIN,TOTAL 0.1 MG/DL (0.2-1.0); CALCIUM LEVEL 9.8 MG/DL (8.8-10.2); CREATININE FOR GFR 1.14 MG/DL (0.55-1.30); GLOMERULAR FILTRATION RATE 49.2 (>39); POTASSIUM SERUM 5.2 MEQ/L (3.5-5.1); TOTAL PROTEIN 6.9 GM/DL (6.4-8.2)
== END ==
LOC: M SFHCADAM 11:10
PROVIDERS: ATTEND Physician Assistant
DX: A04.72 Enterocolitis due to Clostridium difficile, not specified as recurrent (principal); R19.7 Diarrhea, unspecified

== ENCOUNTER → 2020-05-15 | Outpatient (REF) | payer OTHER ==
[~2020-05-15] MED LIST changes: +GABA-282 PO; -GABA-843 PO; -LISI-538 PO; +LISI20TA33 PO
== END ==
LOC: M SFHCADAM 05-14 12:27
PROVIDERS: ATTEND Physician Assistant
DX: R19.7 Diarrhea, unspecified (principal)

== ENCOUNTER → 2020-05-16 | Outpatient (CLI) | payer MEDICARE ==
[~2020-05-16] MED LIST changes: -GABA-282 PO; +GABA-843 PO; +GASTROGRAFIN SOLUTION 30ML (Q9963) As Ordered ONE; +ISOVUE-370 76% 100ML VIAL As Ordered ONE; +LISI-538 PO; -LISI20TA33 PO
--- NOTE | 2020-05-16 12:39 | REP ---
INDICATION: C DIF. COMPARISON: 09/02/2019 TECHNIQUE: Axial contrast-enhanced images from the lung bases to the pubic symphysis using oral and 100 cc Isovue 370 intravenous contrast material. Precontrast images of the abdomen along with coronal and sagittal reformations obtained. This CT examination was performed using the following dose reduction techniques: Automated exposure control, adjustment of mA and/or kv according to the patient's size, and the use of iterative reconstruction technique. FINDINGS: Liver, spleen, pancreas, gallbladder, bilateral adrenal glands and kidneys are normal. The enteric system including stomach, small, and large bowel appears normal. No evidence for obstruction or acute inflammatory process. Normal cecum and terminal ileum identified in the right lower quadrant. Pelvis demonstrates normal bladder and evidence for prior hysterectomy. No ascites. No free air. No intraperitoneal or retroperitoneal adenopathy. Abdominal aorta and vasculature appear normal. Musculoskeletal structures are intact and without acute osseous abnormality. IMPRESSION: No acute abdominopelvic pathology appreciated. Normal appearance of the enteric system without acute infectious/inflammatory process. <Electronically signed by Christofer Granda > 05/16/20 [id number]
== END ==
LOC: M RAD 10:41
PROVIDERS: ATTEND Physician Assistant
DX: A04.72 Enterocolitis due to Clostridium difficile, not specified as recurrent (principal)
CPT/HCPCS: 74178; Q9963; Q9967

== ENCOUNTER → 2020-05-23 | Outpatient (REF) | payer MEDICARE ==
[~2020-05-23] MED LIST changes: +GABA-282 PO; -GABA-843 PO; -GASTROGRAFIN SOLUTION 30ML (Q9963) As Ordered ONE; -ISOVUE-370 76% 100ML VIAL As Ordered ONE
[2020-05-24 13:33] LABS: APPEARANCE, URINE HAZY (CLEAR); BACTERIA, URINE AUTO NEGATIVE (NEGATIVE); BILIRUBIN, URINE AUTO NEGATIVE (NEGATIVE); BLOOD, URINE BLOOD NEGATIVE (NEGATIVE); COLOR, URINE YELLOW (YELLOW); GLUCOSE, URINE (UA) AUTO 3+ mg/dL (NEGATIVE); KETONE, URINE AUTO NEGATIVE (NEGATIVE); LEUKOCYTE ESTERASE, URINE AUTO 2+ (NEGATIVE); NITRITE, URINE AUTO NEGATIVE (NEGATIVE); PROTEIN, URINE AUTO NEGATIVE (NEGATIVE); RBC, URINE AUTO 0 /HPF (0-3); SPECIFIC GRAVITY URINE AUTO 1.021 (1.002-1.035); SQUAMOUS EPITHELIAL CELL UR AU 0 /HPF (0-6); UROBILINOGEN, URINE AUTO 0.2 mg/dL (0.0-2.0); WBC, URINE AUTO 18 /HPF (0-3)
== END ==
LOC: M SFHCADAM 16:12
PROVIDERS: ATTEND Physician Assistant
DX: R10.30 Lower abdominal pain, unspecified (principal)

== ENCOUNTER → 2020-06-21 | Outpatient (REF) | payer MEDICARE ==
[~2020-06-21] MED LIST changes: -LISI-538 PO; +LISI20TA33 PO
[2020-06-21 17:20] LABS: HEMATOCRIT 36.8 % (36.0-47.0); HEMOGLOBIN 11.9 g/dl (12.0-15.5); MEAN CORPUSCULAR HEMOGLOBIN 28.3 pg (27.0-33.0); MEAN CORPUSCULAR HGB CONC 32.3 g/dl (32.0-36.5); MEAN CORPUSCULAR VOLUME 87.4 fl (80.0-96.0); PLATELET COUNT, AUTOMATED 334 10^3/uL (150-450); RED BLOOD COUNT 4.21 10^6/uL (4.00-5.40); WHITE BLOOD COUNT 9.8 10^3/uL (4.0-10.0)
[2020-06-21 17:30] LABS: FREE T4 0.86 NG/DL (0.76-1.46); THYROID STIMULATING HORMONE 1.29 uIU/ML (0.358-3.740)
[2020-06-21 17:47] LABS: MAU/CREAT RATIO 146.8 MCG/MG (0.0-30.0)
[2020-06-21 19:54] LABS: HEMOGLOBIN A1c 7.4 %
== END ==
LOC: M SFHCADAM 13:34
PROVIDERS: ATTEND Physician Assistant
DX: R19.7 Diarrhea, unspecified (principal); E11.21 Type 2 diabetes mellitus with diabetic nephropathy; I11.9 Hypertensive heart disease without heart failure; K21.9 Gastro-esophageal reflux disease without esophagitis

== ENCOUNTER → 2020-07-10 | Outpatient (CLI) | payer MEDICARE | LOC: M LABSMTC 12:07 | PROVIDERS: ATTEND Anesthesiology | DX: Z01.812 Encounter for preprocedural laboratory examination (principal); Z20.822 Contact with and (suspected) exposure to COVID-19 ==

== ENCOUNTER 2020-07-13 14:33 | Day surgery (SDC) | payer MEDICARE ==
[~2020-07-13] VITALS: Ht 157.5 cm; Wt 95.9 kg
[~2020-07-13 14:33] MED LIST changes: +FECAL MICROBIOTA PREPARATION 250 ML BTL (J3590) XX ONE; +LIDOCAINE 2% 100MG/5ML SDV (FOR ANES.) As Ordered ONE; +NS 1,000 ML IV ONE; +propofoL 200 MG/20 ML VIAL As Ordered ONE
--- NOTE | 2020-07-13 17:09 | ROOR ---
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 Procedure: Pre-Anesthesia Assessment: - The heart rate, respiratory rate, oxygen saturations, blood pressure, adequacy of pulmonary ventilation, and response to care were monitored throughout the procedure. The was introduced through the anus and advanced to the cecum, identified by appendiceal orifice and ileocecal valve. The colonoscopy was performed without difficulty. The patient tolerated the procedure well. The quality of the bowel preparation was adequate. Findings: The decision was made to proceed with fecal microbiota transplant (bacteriotherapy). Donor stool was supplied by [employer] (purchased frozen stool), Donor/Unit ID # [id number], as per protocol. Approximately 250 mL of the donor stool was instilled in the cecum. A detailed colonoscopic exam could not be performed upon scope withdrawal secondary to limited visibility from the instilled stool. This precludes the ability to screen for colon cancer, and the patient was made aware of this prior to the procedure. Biopsies for histology were taken with a cold forceps from the entire colon for evaluation of microscopic colitis. Impression: - Fecal Microbiota Transplant (Bacteriotherapy) performed in the cecum. - Biopsies were taken with a cold forceps from the entire colon for evaluation of microscopic colitis. Recommendation: - Telephone endoscopist for pathology results in 2 weeks. - Stop/do NOT restart any antibiotics you were on for C difficile colitis. Avoid use of any future antibiotics if at all possible. If need for antibiotic therapy arises in the future, please notify your primary care physician for review/discussion. Procedure Code(s): --- Professional --- 70890, Colonoscopy, flexible; with biopsy, single or multiple 89400, Preparation of fecal microbiota for instillation, including assessment of donor specimen Diagnosis Code(s): --- Professional --- A04.71, Enterocolitis due to Clostridium difficile, recurrent CPT copyright 2019 [employer]. All rights reserved. The codes documented in this report are preliminary and upon pizza hut assistant review may be revised to meet current compliance requirements. Gabriel Dhillon MD Gabriel DHILLON MD 07/13/2020 5:08:58 PM Electronically signed by Gabriel DHILLON MD Number of Addenda: 0 Note Initiated On: 07/13/2020 4:45 PM Estimated Blood Loss: Estimated blood loss: none.
[2020-07-13 17:51] VITALS: BP 145/85
== END 2020-07-13 17:56 | disposition home or self-care (01) ==
LOC: M OPP 14:33
PROVIDERS: ATTEND Internal Medicine Gastroenterology
DX: A04.71 Enterocolitis due to Clostridium difficile, recurrent (principal); E11.9 Type 2 diabetes mellitus without complications; I10 Essential (primary) hypertension; Z79.82 Long term (current) use of aspirin; Z79.84 Long term (current) use of oral hypoglycemic drugs; Z79.899 Other long term (current) drug therapy; Z91.040 Latex allergy status; Z91.048 Other nonmedicinal substance allergy status; Z87.891 Personal history of nicotine dependence
CPT/HCPCS: 88305; G0455

== ENCOUNTER → 2020-09-27 | Outpatient (CLI) | payer MEDICARE ==
[~2020-09-27] MED LIST changes: -FECAL MICROBIOTA PREPARATION 250 ML BTL (J3590) XX ONE; -LIDOCAINE 2% 100MG/5ML SDV (FOR ANES.) As Ordered ONE; -NS 1,000 ML IV ONE; -propofoL 200 MG/20 ML VIAL As Ordered ONE
== END ==
LOC: M LABSMTC 11:59
PROVIDERS: ATTEND Anesthesiology
DX: Z01.812 Encounter for preprocedural laboratory examination (principal); Z20.822 Contact with and (suspected) exposure to COVID-19

== ENCOUNTER → 2020-10-02 | Day surgery (SDC) | payer MEDICARE ==
[~2020-10-02] VITALS: Ht 157.5 cm; Wt 97.1 kg
[~2020-10-02] MED LIST changes: +DEXTROSE 50% 50 ML SYRINGE As Ordered ONE; +DEXTROSE 50% 50 ML SYRINGE IV ONE; +FECAL MICROBIOTA PREPARATION 250 ML BTL (J3590) XX ONE; +LIDOCAINE 2% 100MG/5ML SDV (FOR ANES.) As Ordered ONE; +NS 1,000 ML IV ONE; +propofoL 200 MG/20 ML VIAL As Ordered ONE
--- NOTE | 2020-10-02 15:51 | ROOR ---
Patient Name: Lenore Khan Procedure Date: 10/02/2020 3:21 PM Date of : 1945 Age: 75 Room: [facility] Gender: Female Note Status: Finalized Procedure: Colonoscopy Indications: Fecal transplant (repeat) for treatment of recurrent Clostridium difficile diarrhea Providers: Gabriel Hudson MD Referring MD: GARIMA Pimentel Requesting Provider: Medicines: Monitored Anesthesia Care Complications: No immediate complications. Procedure: Pre-Anesthesia Assessment: - The heart rate, respiratory rate, oxygen saturations, blood pressure, adequacy of pulmonary ventilation, and response to care were monitored throughout the procedure. The Colonoscope was introduced through the anus and advanced to the cecum, identified by appendiceal orifice and ileocecal valve. The colonoscopy was performed without difficulty. Findings: The decision was made to proceed with fecal microbiota transplant (bacteriotherapy). Donor stool was supplied as per protocol. Approximately 250 mL of the donor stool was instilled in the cecum. A detailed colonoscopic exam could not be performed upon scope withdrawal secondary to limited visibility from the instilled stool. Impression: - Fecal Microbiota Transplant (Bacteriotherapy) performed in the cecum. - No specimens collected. Recommendation: - Telephone my office if symptomatic. Procedure Code(s): --- Professional --- 96915, Colonoscopy, flexible; diagnostic, including collection of specimen(s) by brushing or washing, when performed (separate procedure) 65464, Preparation of fecal microbiota for instillation, including assessment of donor specimen Diagnosis Code(s): --- Professional --- A04.71, Enterocolitis due to Clostridium difficile, recurrent CPT copyright 2019 [employer]. All rights reserved. The codes documented in this report are preliminary and upon laser cutter review may be revised to meet current compliance requirements. Gabriel Hudson MD Gabriel Hudson MD 10/02/2020 3:51:32 PM Electronically signed by Gabriel Hudson MD Number of Addenda: 0 Note Initiated On: 10/02/2020 3:21 PM Estimated Blood Loss: Estimated blood loss: none.
[2020-10-02 16:16] VITALS: BP 153/70
== END | disposition home or self-care (01) ==
LOC: M OPP 13:09
PROVIDERS: ATTEND Internal Medicine Gastroenterology
DX: A04.71 Enterocolitis due to Clostridium difficile, recurrent (principal); Z79.82 Long term (current) use of aspirin; Z79.84 Long term (current) use of oral hypoglycemic drugs; Z79.899 Other long term (current) drug therapy; Z91.040 Latex allergy status; Z91.048 Other nonmedicinal substance allergy status

== ENCOUNTER → 2020-11-06 | Outpatient (REF) | payer MEDICARE ==
[~2020-11-06] MED LIST changes: -DEXTROSE 50% 50 ML SYRINGE As Ordered ONE; -DEXTROSE 50% 50 ML SYRINGE IV ONE; -FECAL MICROBIOTA PREPARATION 250 ML BTL (J3590) XX ONE; -LIDOCAINE 2% 100MG/5ML SDV (FOR ANES.) As Ordered ONE; -NS 1,000 ML IV ONE; -propofoL 200 MG/20 ML VIAL As Ordered ONE
[2020-11-06 13:17] LABS: CREATININE FOR GFR 1.08 MG/DL (0.55-1.30); GLOMERULAR FILTRATION RATE 52.4 (>39); POTASSIUM SERUM 4.9 MEQ/L (3.5-5.1)
== END ==
LOC: M LABDRWAD 12:39
PROVIDERS: ATTEND Nurse Practitioner Family
DX: E87.5 Hyperkalemia (principal)

== ENCOUNTER → 2020-12-29 | Outpatient (CLI) | payer MEDICARE ==
[~2020-12-29] MED LIST changes: +ACET-907 PO; +CVS1CAP2 PO; +DIPH25CA32 PO; +FIAS100I2 SC; +JARD1TAB3 PO; +LOPI600T PO; +MECO5000 PO; +OMEG12003 PO; +PRAV20TA2 PO
== END ==
LOC: M LABSMTC 10:24
PROVIDERS: ATTEND Anesthesiology
DX: Z01.812 Encounter for preprocedural laboratory examination (principal); Z20.822 Contact with and (suspected) exposure to COVID-19

== ENCOUNTER 2021-01-03 11:09 | Day surgery (SDC) | payer MEDICARE ==
[~2021-01-03] VITALS: Ht 157.5 cm; Wt 98.3 kg
[~2021-01-03 11:09] MED LIST changes: +LR 1,000 ML IV ONE; +ceFAZolin SOD 2 GM in IV 1 EA IV ONE
[2021-01-03] MEDS ORDERED: GABA-282 PO (11:35)
[2021-01-03] MEDS ORDERED: MIDAZOLAM INJ 2MG/2ML VIAL (J2250 PER 1MG) As Ordered ONE (13:36)
[2021-01-03] MEDS ORDERED: propofoL 500 MG/50 ML VIAL As Ordered ONE (13:37)
[2021-01-03] MEDS ORDERED: fentaNYL 100 MCG/2 ML INJECTION (J3010) As Ordered ONE (13:37)
[2021-01-03] MEDS ORDERED: BACITRACIN OINTMENT 30GM TUBE As Ordered ONE (13:49)
[2021-01-03] MEDS ORDERED: LIDOCAINE 1% SDV 30ML VIAL As Ordered ONE (13:49)
[2021-01-03] MEDS ORDERED: ISOVUE-300 61% 50ML VIAL As Ordered ONE (13:50)
[2021-01-03] MEDS ORDERED: ePHEDrine SULFATE 25 MG/5 ML(5MG/ML) SYRINGE As Ordered ONE ×2 (14:34→16:24)
--- NOTE | 2021-01-03 16:39 | REP ---
INDICATION: PACEMAKER INSERTION. COMPARISON: None. TECHNIQUE: Single-view. 9 minutes fluoroscopy time reported. FINDINGS: A single last image hold fluoroscopically obtained spot radiograph of the chest documents pacemaker lead position. IMPRESSION: Procedural imaging. <Electronically signed by aIn Dominguez > 01/03/21 [id number]
--- NOTE | 2021-01-03 16:51 | REP ---
INDICATION: S/P PACEMAKER COMPARISON: None. TECHNIQUE: Portable AP view of the chest FINDINGS: Patient is status post satisfactory pacemaker placement. Lung rosario demonstrate chronic appearing changes without obvious focal consolidation, effusion, or pneumothorax. Skeletal structures are intact. IMPRESSION: Status post pacemaker. No acute cardiopulmonary process appreciated. No effusion or pneumothorax. <Electronically signed by Christofer Granda > 01/03/21 [id number]
[2021-01-03] MEDS ORDERED: **hydrALAZINE HCL** 25 MG TAB PO ONE (17:15)
[2021-01-03 18:00] VITALS: BP 162/88
[2021-01-03] MEDS ORDERED: diphenhydrAMINE 25MG CAP PO SCH (18:00)
[2021-01-03 18:45] VITALS: BP 192/86
--- NOTE | 2021-01-03 19:20 | RO ---
OPERATIVE NOTE DATE OF OPERATION: 01/03/2021 PREOPERATIVE DIAGNOSIS: Sick sinus syndrome. POSTOPERATIVE DIAGNOSIS: Sick sinus syndrome. FINDINGS: Sick sinus syndrome. PROCEDURE PERFORMED: Implantation of Medtronic dual-chamber pacemaker. SURGEON: Gabriel Rivera M.D. CYBER SECURITY INSTRUCTOR: None. ANESTHESIA: Lidocaine 1% local/monitored anesthetic care. SPECIMENS: None. ESTIMATED BLOOD LOSS: Less than 15 mL. BLOOD PRODUCTS REPLACED: None. DRAINS: None. COMPLICATIONS: None. PROCEDURE DESCRIPTION: Patient was prepped and draped over the left pectoral region. 3M Ioban film was applied. Lidocaine 1% was used for local anesthetic. The patient had two tries with left subclavian venogram. The first left subclavian venogram was performed using 20 mL of a mixture of five parts to one part Isovue/normal saline injected via an antecubital vein in the left antecubital fossa and the flow in that vein was very slow and the venogram was completely inadequate for visualization of the left subclavian vein. At this point, the nurse automobile body repairer helper was kind enough to obtain a separate venous access in the left forearm. After obtaining new vein access in the left forearm, a venogram using 20 mL of a mixture of five parts to one part Isovue/normal saline was injected via the new peripheral IV. This provided a good quality left subclavian venogram. This was used in real time for percutaneous access with a micropuncture needle into the extrathoracic portion of the left subclavian vein. This was then guidewire exchanged for a guidewire that came with one of the 7 Irish sheaths. Next, I made an incision about 3 to 3-1/2 inches in length 1 cm below the skin entry site of the guidewire and approximately parallel to the left clavicle using a PEAK PlasmaBlade. The PEAK PlasmaBlade was used to get through the fatty layer and through the fibrous Lolita's fascia. The pacemaker pocket was then formed in a caudal direction, the prepectoral fascia from the Lolita's fascia using blunt dissection using two fingers. The guidewire was then pulled through the skin into the incision site. Next, I took a 7 Irish introducer and sheath combination and placed it over the guidewire into the left subclavian vein. The sheath was left in place. The guidewire was left in place and the introducer was removed. Next, I took another guidewire from the other 7 Irish sheath and placed it alongside the first guidewire within the 7 Irish sheath. Next, the 7 Irish sheath was removed, leaving the two guidewires in place in the vein. Next, I took the 7 Irish sheath and its introducer and put the back together and placed it over one of the two guidewires. The sheath was then used for vein access for the right ventricular lead. The right ventricular lead was implanted in the vicinity of the right ventricular apex and secured with a total of ten turns. This position was found to be electrically and anatomically satisfactory and no diaphragmatic stimulation could be palpated on either side at 8 volt high output pacing. Next, I took a new 7 Irish sheath introducer and placed it over the other guidewire and it was placed into the vein. This was used for vein access for the right atrial lead. The right atrial lead was placed under fluoroscopic guidance in the vicinity of the right atrial appendage using the assistance of a preformed J-stylet. It was secured with a total of 10 turns. The J stylet was removed and the lead remained stable. The atrial lead was found to be electrically and anatomically satisfactory. Next, the atrial and ventricular leads were secured to the pectoral muscle using the supplied tie-down sleeves. 0 Ethibond suture was used to secure the leads to the pectoral muscle. The ventricular lead was secured with one stitch and the atrial lead was secured with two stitches. Next, I took another 0 Ethibond suture and placed it lateral in the pocket placed to the pectoral muscle to serve as the tie-down for the pacemaker pulse generator. The terminal pins of the ventricular and atrial leads were plugged into their respective ports within the header of the pacemaker pulse generator and each one was secured by tightening the set screws with the hex screwdriver. A pull test was applied to each of the leads to demonstrate that they secure within the header. The excess lead material was coiled underneath the pacemaker pulse generator and placed into the pacemaker pocket with the excess lead material below and the pacemaker pulse generator over top. I then took a medium sized [employer] TYRX antimicrobial envelope and cut it into four pieces which were placed below the pacemaker and the pacemaker wires. The pacemaker pulse generator was then secured to the pectoral muscle with the previously placed 2-0 Ethibond suture. The deep layer was closed using individual sutures consisting of 2-0 Vicryl. The more superificial layer was approximated using individual sutures consisting of 3-0 Vicryl. The skin was then approximated using joey. This was then followed by Bactroban ointment, Telfa and Bio-occlusive dressing and then a left arm sling before the patient left the operating room. The patient tolerated the procedure well without any immediate complications. Before leaving the operating room, a final fluoroscopic picture was obtained for hard copy, demonstrating the final position of the leads. The pacemaker pulse generator implanted was a Medtronic model W1DR01 [place] [address] DR BRONSON Berry. It had serial number [id number]. The Medtronic TYRX envelope implanted was reference number [id number] with lot number [id number]. The right atrial lead implanted was a Medtronic model 4076-52 cm with serial number [id number]. Testing in bipolar configuration with the pulse analyzer for the right atrial lead showed capture threshold of 1.125 volts at 0.4 milliseconds with lead impedance of 418 ohms and P wave amplitude of 2.3 millivolts. Device based measures for the right atrial lead showed P wave of 2.1 millivolts with lead impedance of 427 ohms and capture threshold of 1.25 volts and 0.4 milliseconds. The right atrial lead implanted was a Medtronic model 4076-58 cm with serial number [id number]. Pulse analyzer testing for the right ventricular lead in the operating room and bipolar configuration showed capture threshold of 0.375 volts at 0.4 milliseconds with lead impedance of 739 ohms and R wave amplitude of 9.75 millivolts. Device based testing in the operating room for the right ventricular lead showed R wave amplitude of 11.4 millivolts with lead impedance of 741 ohms and capture threshold of 0.5 volts at 0.4 milliseconds.
[2021-01-03 20:00] VITALS: BP 182/77
[2021-01-03] MEDS ORDERED: GABAPENTIN 300 MG CAP PO SCH (21:00)
[2021-01-03] MEDS ORDERED: PRAVASTATIN 20 MG TAB PO SCH (21:00)
[2021-01-03] MEDS: ACETAMINOPHEN TAB 650MG DOSE (2X325MG) PO PRN (21:05)
[2021-01-03] MEDS: ASCORBIC ACID 250 MG TAB PO SCH (21:05)
[2021-01-04] VITALS (8 sets, daily range): BP systolic 140–180; BP diastolic 70–100
[2021-01-04] MEDS ORDERED: lisinopriL 40 MG TAB PO ONE (01:00)
[2021-01-04] MEDS: ACETAMINOPHEN TAB 650MG DOSE (2X325MG) PO PRN (05:24)
[2021-01-04] MEDS ORDERED: metFORMIN (GLUCOPHAGE) 1000 MG TABLET PO SCH (08:00)
--- NOTE | 2021-01-04 08:29 | REP ---
INDICATION: Post op pacemaker before 0800am COMPARISON: 01/03/2021 TECHNIQUE: PA and lateral. FINDINGS: Patient is again noted to be status post recent pacemaker placement without evidence for pneumothorax. Leads appear to be overlying the right atrium and right ventricle and the cardiac silhouette is stable. The lung rosario are relatively clear and without obvious consolidation or effusion. Chronic eventration and elevation to the right hemidiaphragm is again noted. IMPRESSION: No acute cardiopulmonary process. <Electronically signed by Christofer Granda > 01/04/21 [id number]
--- NOTE | 2021-01-04 08:47 | ECGEPIP ---
[facility] Test Date: 2021-01-03 Pat Name: LADONNA YANCEY Department: Room: [place] [address] Gender: Female Care Transition Coordinator: RAYMOND : 1945 Requested By: Gabrile Rivera Order Number: [id number] Reading MD: Gabriel Green Measurements Intervals [place] Rate: 70 P: ME: 262 QRS: -26 QRSD: 116 T: 114 QT: 420 QTc: 453 Interpretive Statements Atrial-paced rhythm with prolonged AV conduction Left ventricular hypertrophy with QRS widening and repolarization abnormality Previous tracing done 05-25-17 was not paced Electronically Signed on 01-04-2021 8:47:10 EDT by Gabriel Green
[2021-01-04] MEDS: ASCORBIC ACID 250 MG TAB PO SCH (08:52)
[2021-01-04] MEDS ORDERED: MELOXICAM (MOBIC) 7.5 MG TAB PO SCH (09:00)
[2021-01-04] MEDS ORDERED: amLODIPine 5 MG TAB PO SCH (09:00)
[2021-01-04] MEDS ORDERED: lisinopriL 40 MG TAB PO SCH (09:00)
[2021-01-04] MEDS ORDERED: GABAPENTIN 300 MG CAP PO SCH (09:00)
[2021-01-04] MEDS ORDERED: ASPIRIN 81 MG CHEW TABLET PO SCH (09:00)
[2021-01-04] MEDS ORDERED: ASCO250T20 PO (13:23)
[2021-01-04] MEDS ORDERED: AMLO1TAB24 PO (13:23)
== END 2021-01-04 16:14 | disposition home or self-care (01) ==
LOC: M SDC 11:09 → M PCU 17:48 → M SDC 01-04 16:14
PROVIDERS: ATTEND Internal Medicine Cardiovascular Disease
DX: I49.5 Sick sinus syndrome (principal); E11.9 Type 2 diabetes mellitus without complications; K21.9 Gastro-esophageal reflux disease without esophagitis; K57.90 Diverticulosis of intestine, part unspecified, without perforation or abscess without bleeding; Z79.84 Long term (current) use of oral hypoglycemic drugs; Z79.4 Long term (current) use of insulin; Z79.82 Long term (current) use of aspirin; Z79.899 Other long term (current) drug therapy
CPT/HCPCS: 33208; 71045; 71046; 76000; 93005; C1785; C1898; J0690; J2250; J3010; Q9967

== ENCOUNTER → 2021-01-25 | Outpatient (REF) | payer MEDICARE ==
[~2021-01-25] MED LIST changes: +AMLO1TAB24 PO; +ASCO250T20 PO; -LR 1,000 ML IV ONE; -ceFAZolin SOD 2 GM in IV 1 EA IV ONE
[2021-01-25 13:45] LABS: APPEARANCE, URINE CLEAR (CLEAR); BACTERIA, URINE AUTO NEGATIVE (NEGATIVE); BILIRUBIN, URINE AUTO NEGATIVE (NEGATIVE); BLOOD, URINE BLOOD NEGATIVE (NEGATIVE); COLOR, URINE YELLOW (YELLOW); GLUCOSE, URINE (UA) AUTO 3+ mg/dL (NEGATIVE); KETONE, URINE AUTO NEGATIVE (NEGATIVE); LEUKOCYTE ESTERASE, URINE AUTO 1+ (NEGATIVE); NITRITE, URINE AUTO NEGATIVE (NEGATIVE); PROTEIN, URINE AUTO 1+ mg/dL (NEGATIVE); RBC, URINE AUTO 5 /HPF (0-3); SPECIFIC GRAVITY URINE AUTO 1.022 (1.002-1.035); SQUAMOUS EPITHELIAL CELL UR AU 0 /HPF (0-6); UROBILINOGEN, URINE AUTO 0.2 mg/dL (0.0-2.0); WBC, URINE AUTO 4 /HPF (0-3)
[2021-01-25 13:50] LABS: HEMATOCRIT 35.6 % (36.0-47.0); HEMOGLOBIN 11.4 g/dl (12.0-15.5); MEAN CORPUSCULAR HEMOGLOBIN 28.1 pg (27.0-33.0); MEAN CORPUSCULAR VOLUME 87.9 fl (80.0-96.0); PLATELET COUNT, AUTOMATED 259 10^3/uL (150-450); RED BLOOD COUNT 4.05 10^6/uL (4.00-5.40); WHITE BLOOD COUNT 6.2 10^3/uL (4.0-10.0)
[2021-01-25 14:27] LABS: ALBUMIN 3.8 GM/DL (3.2-5.2); ALT/SGPT 21 U/L (12-78); BILIRUBIN,TOTAL 0.3 MG/DL (0.2-1.0); BLOOD UREA NITROGEN 18 MG/DL (7-18); CALCIUM LEVEL 9.9 MG/DL (8.8-10.2); CARBON DIOXIDE LEVEL 25 MEQ/L (21-32); CHLORIDE LEVEL 105 MEQ/L (98-107); CREATININE FOR GFR 0.92 MG/DL (0.55-1.30); GLOMERULAR FILTRATION RATE > 60.0 (>39); GLUCOSE, FASTING 139 MG/DL (70-100); POTASSIUM SERUM 5.1 MEQ/L (3.5-5.1); SODIUM LEVEL 140 MEQ/L (136-145); TOTAL PROTEIN 6.8 GM/DL (6.4-8.2)
[2021-01-25 15:09] LABS: HEMOGLOBIN A1c 6.5 %
== END ==
LOC: M SFHCADAM 08:17
PROVIDERS: ATTEND Physician Assistant
DX: R39.15 Urgency of urination (principal); E11.21 Type 2 diabetes mellitus with diabetic nephropathy

== ENCOUNTER 2021-01-29 07:22 | Outpatient (CLI) | payer MEDICARE ==
[~2021-01-29] VITALS: Ht 157.5 cm; Wt 136.0 kg
[~2021-01-29 07:22] MED LIST changes: +ALBUTEROL 90 MCG/ACT 8GM HFA INHALER INH PRN; +ALBUTEROL SULFATE 2.5 MG/0.5 ML INH NEB SOLN INH PRN; +EPINEPHrine INJ 1 MG/ML 1ML AMP IM PRN; +NS 1,000 ML IV SCH; +diphenhydrAMINE 50MG/ML VIAL (J1200) IV PRN; +methylPREDNISolone 125MG 2ML VIAL IV PRN
[2021-01-29] MEDS ORDERED: CASIRIVIMAB/IMDEVIMAB 1,200 MG in NS 250 ML IV ONE (07:30)
[2021-01-29 07:44] VITALS: BP 145/63
[2021-01-29 08:07] VITALS: BP 116/56
[2021-01-29 08:38] VITALS: BP 101/46
[2021-01-29 09:09] VITALS: BP 103/48
[2021-01-29 10:12] VITALS: BP 117/52
== END 2021-01-29 10:16 | disposition home or self-care (01) ==
LOC: M OPCLI4 07:22 → M 4MAIN 07:26 → M OPCLI4 10:16
PROVIDERS: ATTEND Physician Assistant Medical
DX: U07.1 COVID-19 (principal); Z91.040 Latex allergy status

== ENCOUNTER → 2021-02-28 | Outpatient (REF) | payer MEDICARE ==
[~2021-02-28] MED LIST changes: -ALBUTEROL 90 MCG/ACT 8GM HFA INHALER INH PRN; -ALBUTEROL SULFATE 2.5 MG/0.5 ML INH NEB SOLN INH PRN; -EPINEPHrine INJ 1 MG/ML 1ML AMP IM PRN; -NS 1,000 ML IV SCH; -diphenhydrAMINE 50MG/ML VIAL (J1200) IV PRN; -methylPREDNISolone 125MG 2ML VIAL IV PRN
[2021-02-28 17:03] LABS: BASO # 0.1 10^3/uL (0.0-0.2); BASO % 0.9 % (0.0-1.0); EOS # 0.4 10^3/uL (0.0-0.5); EOS % 5.3 % (0.0-3.0); HEMATOCRIT 36.8 % (36.0-47.0); HEMOGLOBIN 11.4 g/dl (12.0-15.5); LYMPH # 2.9 10^3/uL (1.5-5.0); MEAN CORPUSCULAR HEMOGLOBIN 27.7 pg (27.0-33.0); MEAN CORPUSCULAR VOLUME 89.5 fl (80.0-96.0); MONO # 0.5 10^3/uL (0.0-0.8); MONO % 5.8 % (2.0-8.0); NEUTROPHILS # 4.3 10^3/uL (1.5-8.5); PLATELET COUNT, AUTOMATED 335 10^3/uL (150-450); RED BLOOD COUNT 4.11 10^6/uL (4.00-5.40); WHITE BLOOD COUNT 8.2 10^3/uL (4.0-10.0)
[2021-02-28 17:28] LABS: ALBUMIN 3.5 GM/DL (3.2-5.2); BILIRUBIN,TOTAL 0.2 MG/DL (0.2-1.0); CALCIUM LEVEL 9.9 MG/DL (8.8-10.2); CREATININE FOR GFR 0.97 MG/DL (0.55-1.30); GLOMERULAR FILTRATION RATE 59.3 (>39); POTASSIUM SERUM 5.3 MEQ/L (3.5-5.1); TOTAL PROTEIN 7.3 GM/DL (6.4-8.2)
== END ==
LOC: M SFHCADAM 12:35
PROVIDERS: ATTEND Physician Assistant
DX: R07.9 Chest pain, unspecified (principal)

== ENCOUNTER → 2021-02-28 | Outpatient (CLI) | payer MEDICARE ==
--- NOTE | 2021-02-28 15:33 | REP ---
INDICATION: CHEST PAIN, UNSPECIFIED TYPE. COMPARISON: 01/04/2021 TECHNIQUE: PA and lateral FINDINGS: There is been a slight increase in the interstitial markings throughout the lung rosario compared to the prior exams. The dual chamber bipolar pacemaker device and cardiomediastinal silhouette appear stable. The pleural angles are again seen to be sharp. No patchy opacities or pleural effusions have developed. IMPRESSION: Possible mild interstitial edema. <Electronically signed by Van Nevarez > 02/28/21 [id number]
== END ==
LOC: M ADAMS 13:02
PROVIDERS: ATTEND Physician Assistant
DX: R07.9 Chest pain, unspecified (principal); Z95.0 Presence of cardiac pacemaker

== ENCOUNTER → 2021-03-01 | Outpatient (CLI) | payer MEDICARE ==
[~2021-03-01] MED LIST changes: +ISOVUE-370 76% 100ML VIAL As Ordered ONE
--- NOTE | 2021-03-01 13:05 | REP ---
INDICATION: ELEV D-DIMER, SOB, HX COVID 19. COMPARISON: Radiographs 02/28/2021. TECHNIQUE: CT angiogram chest performed following the intravenous administration of 100 cc of Isovue 370. Sagittal and coronal reconstruction images are performed. FINDINGS: Lungs: There is mild diffuse patchy infiltrate bilaterally, with predominant peripheral location compatible with COVID pneumonia. Mediastinum: No adenopathy. Pulmonary arteries: No evidence of pulmonary embolism. Rose: No adenopathy. Axilla: No adenopathy. Pleura: No effusion. Heart: Not enlarged. Thoracic aorta: No aneurysm or dissection. Upper abdominal structures: Unremarkable. Visualized osseous structures: There are degenerative changes of the spine without compression deformity. Left thyroid nodules are present measuring up to 1.5 cm. Recommend follow-up thyroid ultrasound to further evaluate. IMPRESSION: No CT evidence of pulmonary embolism. There is mild diffuse patchy infiltrate bilaterally, with predominant peripheral location compatible with COVID pneumonia. Left thyroid nodules are present measuring up to 1.5 cm. Recommend follow-up thyroid ultrasound to further evaluate. <Electronically signed by Jong Lozada > 03/01/21 [id number]
== END ==
LOC: M RAD 11:42
PROVIDERS: ATTEND Physician Assistant
DX: R79.89 Other specified abnormal findings of blood chemistry (principal); R06.02 Shortness of breath; Z86.16 Personal history of COVID-19; E04.2 Nontoxic multinodular goiter; R91.8 Other nonspecific abnormal finding of lung field
CPT/HCPCS: 71275; Q9967

== ENCOUNTER → 2021-05-15 | Outpatient (REF) | payer MEDICARE ==
[~2021-05-15] MED LIST changes: -ISOVUE-370 76% 100ML VIAL As Ordered ONE
[2021-05-15 17:42] LABS: CALCIUM LEVEL 10.8 MG/DL (8.8-10.2); CREATININE FOR GFR 0.96 MG/DL (0.55-1.30); GLOMERULAR FILTRATION RATE 59.8 (>39); POTASSIUM SERUM 4.8 MEQ/L (3.5-5.1)
[2021-05-15 17:43] LABS: ALBUMIN 4.3 GM/DL (3.2-5.2); BILIRUBIN,TOTAL 0.1 MG/DL (0.2-1.0); TOTAL PROTEIN 7.9 GM/DL (6.4-8.2)
[2021-05-15 17:50] LABS: BASO # 0.1 10^3/uL (0.0-0.2); BASO % 0.7 % (0.0-1.0); EOS # 0.4 10^3/uL (0.0-0.5); EOS % 4.7 % (0.0-3.0); HEMATOCRIT 37.8 % (36.0-47.0); HEMOGLOBIN 12.1 g/dl (12.0-15.5); LYMPH # 3.4 10^3/uL (1.5-5.0); LYMPH % 42.7 % (24.0-44.0); MEAN CORPUSCULAR HEMOGLOBIN 27.8 pg (27.0-33.0); MEAN CORPUSCULAR VOLUME 86.7 fl (80.0-96.0); MONO # 0.5 10^3/uL (0.0-0.8); MONO % 6.4 % (2.0-8.0); NEUTROPHILS # 3.6 10^3/uL (1.5-8.5); PLATELET COUNT, AUTOMATED 357 10^3/uL (150-450); RED BLOOD COUNT 4.36 10^6/uL (4.00-5.40)
== END ==
LOC: M SFHCADAM 15:32
PROVIDERS: ATTEND Physician Assistant
DX: R07.89 Other chest pain (principal); R06.00 Dyspnea, unspecified

== ENCOUNTER → 2021-05-15 | Outpatient (CLI) | payer MEDICARE ==
--- NOTE | 2021-05-15 16:36 | REP ---
INDICATION: ATYPICAL CHEST PAIN. COMPARISON: 02/28/2021 TECHNIQUE: PA and lateral views FINDINGS: The superior mediastinal structures are midline. The cardiac silhouette is unremarkable in size, shape, and position. The diaphragmatic surfaces of the lungs are regular, and the costophrenic angles are clear. The pulmonary rosario are clear. The imaged osseous structures are intact. The dual chamber bipolar pacemaker devices unchanged. The increased interstitial markings seen previously have resolved IMPRESSION: There is no acute cardiopulmonary disease. <Electronically signed by Van Nevarez > 05/15/21 [id number]
== END ==
LOC: M ADAMS 15:43
PROVIDERS: ATTEND Physician Assistant
DX: R07.89 Other chest pain (principal); Z95.0 Presence of cardiac pacemaker

== ENCOUNTER → 2021-07-15 | Outpatient (REF) | payer MEDICARE ==
[2021-07-15 12:57] LABS: HEMATOCRIT 36.1 % (36.0-47.0); HEMOGLOBIN 11.5 g/dl (12.0-15.5); MEAN CORPUSCULAR HEMOGLOBIN 27.8 pg (27.0-33.0); MEAN CORPUSCULAR HGB CONC 31.9 g/dl (32.0-36.5); MEAN CORPUSCULAR VOLUME 87.2 fl (80.0-96.0); PLATELET COUNT, AUTOMATED 283 10^3/uL (150-450); RED BLOOD COUNT 4.14 10^6/uL (4.00-5.40); WHITE BLOOD COUNT 6.8 10^3/uL (4.0-10.0)
[2021-07-15 13:14] LABS: HEMOGLOBIN A1c 6.5 %
[2021-07-15 13:26] LABS: ALBUMIN 3.9 GM/DL (3.2-5.2); ALT/SGPT 25 U/L (12-78); BILIRUBIN,TOTAL 0.2 MG/DL (0.2-1.0); BLOOD UREA NITROGEN 38 MG/DL (7-18); CALCIUM LEVEL 10.5 MG/DL (8.8-10.2); CARBON DIOXIDE LEVEL 23 MEQ/L (21-32); CHLORIDE LEVEL 111 MEQ/L (98-107); CHOLESTEROL LEVEL 198 MG/DL (<200); FREE T4 0.96 NG/DL (0.76-1.46); GLOMERULAR FILTRATION RATE 51.1 (>39); GLUCOSE, FASTING 106 MG/DL (70-100); HDL CHOLESTEROL 55 MG/DL (>40); LDL CHOLESTEROL 110 MG/DL (<100); NON-HDL-C 143 MG/DL; POTASSIUM SERUM 5.3 MEQ/L (3.5-5.1); SODIUM LEVEL 141 MEQ/L (136-145); THYROID STIMULATING HORMONE 0.847 uIU/ML (0.358-3.740); TOTAL PROTEIN 7.1 GM/DL (6.4-8.2); TRIGLYCERIDES LEVEL 165 MG/DL (<150)
[2021-07-16 12:46] LABS: FOLATE > 24.0 NG/ML; TOTAL 25(OH) VITAMIN D 25.4 NG/ML (30.0-100.0); VITAMIN B12 LEVEL 603 PG/ML
== END ==
LOC: M SFHCADAM 08:18
PROVIDERS: ATTEND Physician Assistant
DX: E11.21 Type 2 diabetes mellitus with diabetic nephropathy (principal); E55.9 Vitamin D deficiency, unspecified; I11.9 Hypertensive heart disease without heart failure

== ENCOUNTER → 2021-07-23 | Outpatient (CLI) | payer MEDICARE | LOC: M WHC 13:31 | PROVIDERS: ATTEND Physician Assistant | DX: Z12.31 Encounter for screening mammogram for malignant neoplasm of breast (principal) ==

== ENCOUNTER → 2021-07-24 | Outpatient (CLI) | payer MEDICARE | LOC: M RAD 13:03 | PROVIDERS: ATTEND Physician Assistant | DX: E04.1 Nontoxic single thyroid nodule (principal) ==

== ENCOUNTER → 2021-08-02 | Outpatient (CLI) | payer MEDICARE ==
[~2021-08-02] MED LIST changes: +ISOVUE-370 76% 100ML VIAL As Ordered ONE
== END ==
LOC: M RAD 13:20
PROVIDERS: ATTEND Physician Assistant
DX: R07.89 Other chest pain (principal)
CPT/HCPCS: 71260; Q9967

== ENCOUNTER → 2021-09-13 | Outpatient (REF) | payer MEDICARE ==
[~2021-09-13] MED LIST changes: -ISOVUE-370 76% 100ML VIAL As Ordered ONE; +METO1TAB32 PO; +OMEP40CA4 PO
== END ==
LOC: M SFHCDERM 13:49
PROVIDERS: ATTEND Nurse Practitioner Family
DX: L57.0 Actinic keratosis (principal); L85.9 Epidermal thickening, unspecified

== ENCOUNTER → 2021-09-16 | Outpatient (CLI) | payer MEDICARE | LOC: M LABSMTC 10:19 | PROVIDERS: ATTEND Anesthesiology | DX: Z01.812 Encounter for preprocedural laboratory examination (principal); Z20.822 Contact with and (suspected) exposure to COVID-19 ==

== ENCOUNTER 2021-09-20 08:38 | Day surgery (SDC) | payer MEDICARE ==
[~2021-09-20] VITALS: Ht 157.5 cm; Wt 94.8 kg
[~2021-09-20 08:38] MED LIST changes: +NS 1,000 ML IV ONE
[2021-09-20] MEDS ORDERED: LIDOCAINE 2% 100MG/5ML SDV (FOR ANES.) As Ordered ONE (08:41)
[2021-09-20] MEDS ORDERED: propofoL 200 MG/20 ML VIAL As Ordered ONE (08:41)
[2021-09-20 11:35] VITALS: BP 159/75
== END 2021-09-20 11:45 | disposition home or self-care (01) ==
LOC: M OPP 08:38
PROVIDERS: ATTEND Internal Medicine Gastroenterology
DX: Z12.11 Encounter for screening for malignant neoplasm of colon (principal); Z86.010 Personal history of colon polyps; K63.89 Other specified diseases of intestine; K57.30 Diverticulosis of large intestine without perforation or abscess without bleeding; K64.8 Other hemorrhoids; Z86.19 Personal history of other infectious and parasitic diseases; A04.72 Enterocolitis due to Clostridium difficile, not specified as recurrent; Z86.16 Personal history of COVID-19; Z79.82 Long term (current) use of aspirin; Z79.84 Long term (current) use of oral hypoglycemic drugs; Z79.899 Other long term (current) drug therapy; Z91.040 Latex allergy status; Z91.048 Other nonmedicinal substance allergy status; Z95.0 Presence of cardiac pacemaker

== ENCOUNTER → 2021-10-10 | Outpatient (CLI) | payer MEDICARE ==
[~2021-10-10] MED LIST changes: -NS 1,000 ML IV ONE
== END ==
LOC: M PAIN 13:30
PROVIDERS: ATTEND Nurse Practitioner Family
DX: R07.89 Other chest pain (principal); G89.29 Other chronic pain; E11.40 Type 2 diabetes mellitus with diabetic neuropathy, unspecified; Z86.59 Personal history of other mental and behavioral disorders; Z95.0 Presence of cardiac pacemaker; Z87.891 Personal history of nicotine dependence; Z88.2 Allergy status to sulfonamides; Z88.8 Allergy status to other drugs, medicaments and biological substances; Z91.040 Latex allergy status; Z91.09 Other allergy status, other than to drugs and biological substances; Z79.4 Long term (current) use of insulin; Z79.82 Long term (current) use of aspirin; Z79.899 Other long term (current) drug therapy

== ENCOUNTER → 2021-10-21 | Outpatient (REF) | payer MEDICARE | LOC: M LAB REF 17:01 | PROVIDERS: ATTEND Internal Medicine Endocrinology, Diabetes & Metabolism | DX: E04.2 Nontoxic multinodular goiter (principal) ==

== ENCOUNTER → 2021-12-16 | Outpatient (CLI) | payer MEDICARE | LOC: M PAIN 11:15 | PROVIDERS: ATTEND Anesthesiology | DX: R07.9 Chest pain, unspecified (principal); G89.29 Other chronic pain; M94.0 Chondrocostal junction syndrome [Tietze]; E11.40 Type 2 diabetes mellitus with diabetic neuropathy, unspecified; I10 Essential (primary) hypertension; Z95.0 Presence of cardiac pacemaker; Z86.59 Personal history of other mental and behavioral disorders; Z85.828 Personal history of other malignant neoplasm of skin; Z87.891 Personal history of nicotine dependence; Z88.2 Allergy status to sulfonamides; Z88.8 Allergy status to other drugs, medicaments and biological substances; Z91.040 Latex allergy status; Z91.09 Other allergy status, other than to drugs and biological substances; Z79.4 Long term (current) use of insulin; Z79.82 Long term (current) use of aspirin; Z79.899 Other long term (current) drug therapy ==

== ENCOUNTER → 2022-01-22 | Outpatient (CLI) | payer MEDICARE ==
[2022-01-22 10:13] LABS: HEMOGLOBIN A1c 6.1 %
[2022-01-22 10:15] LABS: ALBUMIN 3.8 GM/DL (3.2-5.2); BILIRUBIN,TOTAL 0.2 MG/DL (0.2-1.0); CALCIUM LEVEL 10.1 MG/DL (8.8-10.2); CREATININE FOR GFR 1.02 MG/DL (0.55-1.30); GLOMERULAR FILTRATION RATE 55.8 (>39); POTASSIUM SERUM 5.1 MEQ/L (3.5-5.1); TOTAL PROTEIN 6.8 GM/DL (6.4-8.2)
== END ==
LOC: M WUC 08:41
PROVIDERS: ATTEND Physician Assistant
DX: E11.21 Type 2 diabetes mellitus with diabetic nephropathy (principal); I10 Essential (primary) hypertension

== ENCOUNTER → 2022-02-13 | Outpatient (REF) | payer MEDICARE ==
[2022-02-13 14:18] LABS: RSV AMPLIFICATION NEGATIVE (NEGATIVE)
== END ==
LOC: M SFHCPLAZ 13:02
PROVIDERS: ATTEND Physician Assistant
DX: J02.9 Acute pharyngitis, unspecified (principal)

== ENCOUNTER → 2022-02-13 | Outpatient (CLI) | payer MEDICARE | LOC: M PLAIMG 09:59 | PROVIDERS: ATTEND Physician Assistant | DX: R05.1 Acute cough (principal); M47.815 Spondylosis without myelopathy or radiculopathy, thoracolumbar region; I70.0 Atherosclerosis of aorta; I77.810 Thoracic aortic ectasia ==

== ENCOUNTER → 2022-04-23 | Outpatient (REF) | payer MEDICARE ==
[2022-04-23 16:43] LABS: CALCIUM LEVEL 9.4 MG/DL (8.3-10.6); CREATININE FOR GFR 1.03 MG/DL (0.55-1.30)
[2022-04-23 17:12] LABS: BASO # 0.1 10^3/uL (0.0-0.2); BASO % 0.7 % (0.0-1.0); EOS # 0.3 10^3/uL (0.0-0.5); EOS % 3.3 % (0.0-3.0); HEMATOCRIT 35.6 % (36.0-47.0); HEMOGLOBIN 11.4 g/dl (12.0-15.5); LYMPH # 3.1 10^3/uL (1.5-5.0); LYMPH % 35.9 % (24.0-44.0); MEAN CORPUSCULAR HEMOGLOBIN 28.6 pg (27.0-33.0); MEAN CORPUSCULAR VOLUME 89.2 fl (80.0-96.0); MONO # 0.4 10^3/uL (0.0-0.8); MONO % 5.1 % (2.0-8.0); NEUTROPHILS # 4.7 10^3/uL (1.5-8.5); NEUTROPHILS % 54.4 % (36.0-66.0); PLATELET COUNT, AUTOMATED 375 10^3/uL (150-450); RED BLOOD COUNT 3.99 10^6/uL (4.00-5.40); WHITE BLOOD COUNT 8.6 10^3/uL (4.0-10.0)
== END ==
LOC: M SFHCADAM 15:04
PROVIDERS: ATTEND Physician Assistant
DX: J40 Bronchitis, not specified as acute or chronic (principal)

== ENCOUNTER → 2022-04-23 | Outpatient (CLI) | payer MEDICARE | LOC: M ADAMS 15:15 | PROVIDERS: ATTEND Physician Assistant | DX: J40 Bronchitis, not specified as acute or chronic (principal) ==

== ENCOUNTER → 2022-06-12 | Outpatient (CLI) | payer MEDICARE ==
[~2022-06-12] MED LIST changes: +DIPH-435 PO; -DIPH25CA32 PO
== END ==
LOC: M PAIN 09:30
PROVIDERS: ATTEND Anesthesiology
DX: M94.0 Chondrocostal junction syndrome [Tietze] (principal); E11.40 Type 2 diabetes mellitus with diabetic neuropathy, unspecified; I10 Essential (primary) hypertension; Z95.0 Presence of cardiac pacemaker; Z86.59 Personal history of other mental and behavioral disorders; Z87.891 Personal history of nicotine dependence; Z88.2 Allergy status to sulfonamides; Z88.8 Allergy status to other drugs, medicaments and biological substances; Z91.040 Latex allergy status; Z91.09 Other allergy status, other than to drugs and biological substances; Z79.4 Long term (current) use of insulin; Z79.82 Long term (current) use of aspirin; Z79.84 Long term (current) use of oral hypoglycemic drugs; Z79.899 Other long term (current) drug therapy

== ENCOUNTER → 2022-06-19 | Outpatient (CLI) | payer MEDICARE | LOC: M PAIN 09:30 | PROVIDERS: ATTEND Anesthesiology | DX: M94.0 Chondrocostal junction syndrome [Tietze] (principal); E11.40 Type 2 diabetes mellitus with diabetic neuropathy, unspecified; I10 Essential (primary) hypertension; Z95.0 Presence of cardiac pacemaker; Z86.59 Personal history of other mental and behavioral disorders; Z87.891 Personal history of nicotine dependence; Z88.2 Allergy status to sulfonamides; Z88.8 Allergy status to other drugs, medicaments and biological substances; Z91.040 Latex allergy status; Z91.09 Other allergy status, other than to drugs and biological substances; Z79.82 Long term (current) use of aspirin; Z79.4 Long term (current) use of insulin; Z79.84 Long term (current) use of oral hypoglycemic drugs; Z79.899 Other long term (current) drug therapy ==

== ENCOUNTER → 2022-07-14 | Outpatient (CLI) | payer MEDICARE ==
[~2022-07-14] MED LIST changes: +INSU100I6 SC; -LEVE1INJ5 SC
== END ==
LOC: M LABSMTC 09:44
PROVIDERS: ATTEND Anesthesiology
DX: Z01.812 Encounter for preprocedural laboratory examination (principal)

== ENCOUNTER → 2022-07-18 | Outpatient (CLI) | payer MEDICARE ==
[~2022-07-18] MED LIST changes: +BUPIVACAINE HCL 0.25% 10ML VIAL As Ordered ONE; +BUPIVACAINE HCL 0.25% 30ML VIAL As Ordered ONE; +TRIAMCINOLONE ACETONIDE SUSP 40MG/ML 1ML VIAL As Ordered ONE; +diazePAM 2 MG TAB As Ordered ONE
== END ==
LOC: M PAIN 08:00
PROVIDERS: ATTEND Anesthesiology
DX: M94.0 Chondrocostal junction syndrome [Tietze] (principal); G89.29 Other chronic pain; E11.40 Type 2 diabetes mellitus with diabetic neuropathy, unspecified; I10 Essential (primary) hypertension; Z95.0 Presence of cardiac pacemaker; Z86.59 Personal history of other mental and behavioral disorders; Z87.891 Personal history of nicotine dependence; Z88.2 Allergy status to sulfonamides; Z88.8 Allergy status to other drugs, medicaments and biological substances; Z91.040 Latex allergy status; Z91.09 Other allergy status, other than to drugs and biological substances; Z79.4 Long term (current) use of insulin; Z79.82 Long term (current) use of aspirin; Z79.84 Long term (current) use of oral hypoglycemic drugs; Z79.899 Other long term (current) drug therapy

== ENCOUNTER → 2022-07-23 | Outpatient (REF) | payer MEDICARE ==
[~2022-07-23] MED LIST changes: -BUPIVACAINE HCL 0.25% 10ML VIAL As Ordered ONE; -BUPIVACAINE HCL 0.25% 30ML VIAL As Ordered ONE; -TRIAMCINOLONE ACETONIDE SUSP 40MG/ML 1ML VIAL As Ordered ONE; -diazePAM 2 MG TAB As Ordered ONE
== END ==
LOC: M SFHCADAM 11:20
PROVIDERS: ATTEND Physician Assistant
DX: E11.21 Type 2 diabetes mellitus with diabetic nephropathy (principal); I10 Essential (primary) hypertension; G62.9 Polyneuropathy, unspecified; E55.9 Vitamin D deficiency, unspecified; K21.9 Gastro-esophageal reflux disease without esophagitis; E04.1 Nontoxic single thyroid nodule

== ENCOUNTER → 2022-07-24 | Outpatient (REF) | payer MEDICARE ==
[2022-07-24 14:58] LABS: HEMATOCRIT 38.8 % (36.0-47.0); HEMOGLOBIN 11.8 g/dl (12.0-15.5); MEAN CORPUSCULAR HEMOGLOBIN 26.9 pg (27.0-33.0); MEAN CORPUSCULAR HGB CONC 30.4 g/dl (32.0-36.5); MEAN CORPUSCULAR VOLUME 88.6 fl (80.0-96.0); PLATELET COUNT, AUTOMATED 327 10^3/uL (150-450); RED BLOOD COUNT 4.38 10^6/uL (4.00-5.40); WHITE BLOOD COUNT 9.7 10^3/uL (4.0-10.0)
[2022-07-24 15:34] LABS: FOLATE > 24.0 NG/ML (>5.4); FREE T4 1.01 NG/DL (0.89-1.76); TOTAL 25(OH) VITAMIN D 17.2 NG/ML (20.0-100.0)
[2022-07-24 16:16] LABS: HEMOGLOBIN A1c 5.8 % (4.0-6.0)
[2022-07-24 16:18] LABS: VITAMIN B12 LEVEL 420 PG/ML (211-911)
[2022-07-24 16:26] LABS: ALBUMIN 4.3 G/DL (3.2-5.2); ALKALINE PHOSPHATASE 76 U/L (46-116); ALT/SGPT 12 U/L (7.0-40); AST/SGOT < 8 U/L (<34); BILIRUBIN,TOTAL 0.3 MG/DL (0.3-1.2); BLOOD UREA NITROGEN 55 MG/DL (9-23); CALCIUM LEVEL 10.4 MG/DL (8.3-10.6); CARBON DIOXIDE LEVEL 22 MMOL/L (20-31); CHLORIDE LEVEL 105 MMOL/L (98-107); CHOLESTEROL LEVEL 188 MG/DL (<200); CHOLESTEROL RISK RATIO 3.67 (<5); CREATININE FOR GFR 1.15 MG/DL (0.55-1.30); GLOMERULAR FILTRATION RATE 48.5 (>39); GLUCOSE, FASTING 109 MG/DL (74-106); HDL CHOLESTEROL 51.2 MG/DL (>40); LDL CHOLESTEROL 100.6 MG/DL (<100); NON-HDL-C 136.8 MG/DL; POTASSIUM SERUM 5.4 MMOL/L (3.5-5.1); SODIUM LEVEL 138 MMOL/L (136-145); TOTAL PROTEIN 7.2 G/DL (5.7-8.2); TRIGLYCERIDES LEVEL 181 MG/DL (<150)
== END ==
LOC: M SFHCADAM 08:54
PROVIDERS: ATTEND Physician Assistant
DX: E11.21 Type 2 diabetes mellitus with diabetic nephropathy (principal); I10 Essential (primary) hypertension; G62.9 Polyneuropathy, unspecified; E55.9 Vitamin D deficiency, unspecified; K21.9 Gastro-esophageal reflux disease without esophagitis; E04.1 Nontoxic single thyroid nodule

== ENCOUNTER → 2022-07-29 | Outpatient (REF) | payer MEDICARE ==
[2022-07-29 13:45] LABS: APPEARANCE, URINE HAZY (CLEAR); BACTERIA, URINE AUTO NEGATIVE (NEGATIVE); BILIRUBIN, URINE AUTO NEGATIVE (NEGATIVE); BLOOD, URINE BLOOD NEGATIVE (NEGATIVE); COLOR, URINE YELLOW (YELLOW); GLUCOSE, URINE (UA) AUTO 2+ mg/dL (NEGATIVE); KETONE, URINE AUTO NEGATIVE (NEGATIVE); LEUKOCYTE ESTERASE, URINE AUTO 2+ (NEGATIVE); MUCUS, URINE SMALL (NEGATIVE); NITRITE, URINE AUTO NEGATIVE (NEGATIVE); PROTEIN, URINE AUTO 1+ mg/dL (NEGATIVE); RBC, URINE AUTO 2 /HPF (0-3); SPECIFIC GRAVITY URINE AUTO 1.024 (1.002-1.035); SQUAMOUS EPITHELIAL CELL UR AU 1 /HPF (0-6); UROBILINOGEN, URINE AUTO 0.2 mg/dL (0.0-2.0); WBC, URINE AUTO 9 /HPF (0-3)
== END ==
LOC: M SFHCADAM 08:14
PROVIDERS: ATTEND Physician Assistant
DX: N32.81 Overactive bladder (principal); Z79.899 Other long term (current) drug therapy

== ENCOUNTER → 2022-08-07 | Outpatient (REF) | payer MEDICARE | LOC: M LAB REF 18:19 | PROVIDERS: ATTEND Internal Medicine Endocrinology, Diabetes & Metabolism | DX: E04.1 Nontoxic single thyroid nodule (principal) ==

== ENCOUNTER → 2022-08-28 | Outpatient (CLI) | payer MEDICARE ==
[2022-08-28 13:28] LABS: PLATELET COUNT, AUTOMATED 310 10^3/uL (150-450)
[2022-08-28 13:37] LABS: INR 0.91; PROTHROMBIN TIME 12.4 SECONDS (12.5-14.5)
[2022-08-28 13:38] LABS: PARTIAL THROMBOPLASTIN TIME 28.1 SECONDS (24.8-34.2)
== END ==
LOC: M PLALAB 11:16
PROVIDERS: ATTEND Physician Assistant
DX: Z01.818 Encounter for other preprocedural examination (principal)

== ENCOUNTER → 2022-09-08 | Outpatient (CLI) | payer MEDICARE | LOC: M PAIN 09:00 | PROVIDERS: ATTEND Nurse Practitioner Family | DX: M94.0 Chondrocostal junction syndrome [Tietze] (principal); G89.29 Other chronic pain; E11.40 Type 2 diabetes mellitus with diabetic neuropathy, unspecified; I10 Essential (primary) hypertension; Z95.0 Presence of cardiac pacemaker; Z86.59 Personal history of other mental and behavioral disorders; Z87.891 Personal history of nicotine dependence; Z88.2 Allergy status to sulfonamides; Z88.8 Allergy status to other drugs, medicaments and biological substances; Z91.040 Latex allergy status; Z91.09 Other allergy status, other than to drugs and biological substances; E66.01 Morbid (severe) obesity due to excess calories; Z68.41 Body mass index [BMI] 40.0-44.9, adult; Z79.4 Long term (current) use of insulin; Z79.82 Long term (current) use of aspirin; Z79.85 Long-term (current) use of injectable non-insulin antidiabetic drugs; Z79.899 Other long term (current) drug therapy ==

== ENCOUNTER → 2022-11-04 | Outpatient (REF) | payer MEDICARE ==
[2022-11-04 14:46] LABS: CREATININE FOR GFR 1.15 MG/DL (0.55-1.30); GLOMERULAR FILTRATION RATE 48.5 (>39); POTASSIUM SERUM 5.7 MMOL/L (3.5-5.1)
[2022-11-04 15:01] LABS: HEMOGLOBIN A1c 6.4 % (4.0-6.0)
== END ==
LOC: M SFHCADAM 09:37
PROVIDERS: ATTEND Family Medicine
DX: E11.42 Type 2 diabetes mellitus with diabetic polyneuropathy (principal)

== ENCOUNTER → 2022-12-24 | Outpatient (CLI) | payer MEDICARE ==
[~2022-12-24] MED LIST changes: +METHACHOLINE KIT INH ONE
== END ==
LOC: M CARPUL 07:56
PROVIDERS: ATTEND Physician Assistant
DX: R06.02 Shortness of breath (principal)

== ENCOUNTER → 2023-01-08 | Outpatient (REF) | payer MEDICARE ==
[~2023-01-08] MED LIST changes: -METHACHOLINE KIT INH ONE
== END ==
LOC: M LAB REF 12:40
PROVIDERS: ATTEND Physician Assistant Medical
DX: R19.7 Diarrhea, unspecified (principal)

== ENCOUNTER → 2023-02-10 | Day surgery (SDC) | payer MEDICARE ==
[~2023-02-10] VITALS: Ht 157.5 cm; Wt 94.5 kg
[~2023-02-10] MED LIST changes: +B-12100020 PO; +GABA600T4 PO; +INSUDET SC; +LISI40TA4 PO; +MELO15TA28 PO; +NS 1,000 ML IV ONE; +OMEP40CA5 PO; +OXYB5TAB11 PO; +TIZA10TA PO; +VERA80TA3 PO
[2023-02-10 09:03] VITALS: TEMP 97.7
[2023-02-10 09:16] VITALS: BP 122/60; O2SAT 98
== END | disposition home or self-care (01) ==
LOC: M OPP 06:56
PROVIDERS: ATTEND Internal Medicine Gastroenterology
DX: K63.5 Polyp of colon (principal); K57.30 Diverticulosis of large intestine without perforation or abscess without bleeding; K64.8 Other hemorrhoids; K30 Functional dyspepsia; K44.9 Diaphragmatic hernia without obstruction or gangrene; R13.10 Dysphagia, unspecified; E11.9 Type 2 diabetes mellitus without complications; R07.9 Chest pain, unspecified; Z87.891 Personal history of nicotine dependence; Z91.89 Other specified personal risk factors, not elsewhere classified; Z79.02 Long term (current) use of antithrombotics/antiplatelets; Z79.1 Long term (current) use of non-steroidal anti-inflammatories (NSAID); Z79.4 Long term (current) use of insulin; Z79.82 Long term (current) use of aspirin; Z91.040 Latex allergy status; Z91.048 Other nonmedicinal substance allergy status

== ENCOUNTER → 2023-02-16 | Outpatient (CLI) | payer MEDICARE ==
[~2023-02-16] MED LIST changes: +METHACHOLINE KIT INH ONE; -NS 1,000 ML IV ONE; +OXYB5TAB10 PO; -OXYB5TAB11 PO
== END ==
LOC: M CARPUL 08:54
PROVIDERS: ATTEND Physician Assistant
DX: R06.02 Shortness of breath (principal)
CPT/HCPCS: 94070; 95070; J7674

== ENCOUNTER → 2023-03-04 | Outpatient (CLI) | payer MEDICARE ==
[~2023-03-04] MED LIST changes: +E-Z-GAS II EFFERVESCENT PACKET (SODIUM BICARB./CITRIC ACID/SIMETHICONE) As Ordered ONE; +E-Z-HD 98% w/w 340GM SUSP BTL As Ordered ONE; +E-Z-PAQUE 96% w/w SUSP 176GM BTL As Ordered ONE; -METHACHOLINE KIT INH ONE; -OXYB5TAB10 PO; +OXYB5TAB11 PO
== END ==
LOC: M RAD 08:18
PROVIDERS: ATTEND Physician Assistant Medical
DX: R13.10 Dysphagia, unspecified (principal); K44.9 Diaphragmatic hernia without obstruction or gangrene

== ENCOUNTER → 2023-04-16 | Outpatient (CLI) | payer MEDICARE ==
[~2023-04-16] MED LIST changes: -E-Z-GAS II EFFERVESCENT PACKET (SODIUM BICARB./CITRIC ACID/SIMETHICONE) As Ordered ONE; -E-Z-HD 98% w/w 340GM SUSP BTL As Ordered ONE; -E-Z-PAQUE 96% w/w SUSP 176GM BTL As Ordered ONE
== END ==
LOC: M PLAIMG 13:03
PROVIDERS: ATTEND Physician Assistant
DX: R91.8 Other nonspecific abnormal finding of lung field (principal)

== ENCOUNTER → 2023-05-13 | Outpatient (REF) | payer MEDICARE ==
[2023-05-13 13:07] LABS: HEMOGLOBIN A1c 6.7 % (4.0-6.0)
[2023-05-13 13:11] LABS: ALBUMIN 3.6 G/DL (3.2-5.2); ALKALINE PHOSPHATASE 79 U/L (46-116); ALT/SGPT 19 U/L (7.0-40); AST/SGOT 12 U/L (<34); BILIRUBIN,TOTAL < 0.2 MG/DL (0.3-1.2); BLOOD UREA NITROGEN 35 MG/DL (9-23); CALCIUM LEVEL 10.1 MG/DL (8.3-10.6); CARBON DIOXIDE LEVEL 25 MMOL/L (20-31); CHLORIDE LEVEL 109 MMOL/L (98-107); CREATININE FOR GFR 0.96 MG/DL (0.55-1.30); GLOMERULAR FILTRATION RATE 59.5 (>32); GLUCOSE, FASTING 150 MG/DL (74-106); POTASSIUM SERUM 5.9 MMOL/L (3.5-5.1); SODIUM LEVEL 142 MMOL/L (136-145); TOTAL PROTEIN 6.5 G/DL (5.7-8.2)
== END ==
LOC: M SFHCADAM 09:48
PROVIDERS: ATTEND Physician Assistant
DX: M48.061 Spinal stenosis, lumbar region without neurogenic claudication (principal); Z79.899 Other long term (current) drug therapy

== ENCOUNTER → 2023-05-14 | Outpatient (REF) | payer MEDICARE | LOC: M SFHCADAM 10:48 | PROVIDERS: ATTEND Physician Assistant | DX: E87.5 Hyperkalemia (principal) ==

== ENCOUNTER → 2023-05-22 | Outpatient (REF) | payer MEDICARE ==
[2023-05-22 13:18] LABS: CALCIUM LEVEL 9.8 MG/DL (8.3-10.6); CREATININE FOR GFR 0.99 MG/DL (0.55-1.30); GLOMERULAR FILTRATION RATE 57.5 (>32); POTASSIUM SERUM 5.1 MMOL/L (3.5-5.1)
== END ==
LOC: M SFHCADAM 10:28
PROVIDERS: ATTEND Physician Assistant
DX: E87.5 Hyperkalemia (principal)

== ENCOUNTER → 2023-06-25 | Outpatient (CLI) | payer MEDICARE ==
[~2023-06-25] MED LIST changes: -OXYB5TAB11 PO; +OXYB5TAB14 PO
== END ==
LOC: M SOG 09:44
PROVIDERS: ATTEND Orthopaedic Surgery
DX: M54.50 Low back pain, unspecified (principal); M47.816 Spondylosis without myelopathy or radiculopathy, lumbar region; I70.0 Atherosclerosis of aorta; M41.9 Scoliosis, unspecified

== ENCOUNTER → 2023-07-21 | Outpatient (REF) | payer MEDICARE ==
[~2023-07-21] MED LIST changes: +ASCO500T PO; +HYDR-3490 PO; +INSULANT SC; +MIRA3350 PO; +VITA200012 PO
[2023-07-21 13:01] LABS: HEMATOCRIT 38.7 % (36.0-47.0); HEMOGLOBIN 11.9 g/dl (12.0-15.5); MEAN CORPUSCULAR HEMOGLOBIN 26.3 pg (27.0-33.0); MEAN CORPUSCULAR HGB CONC 30.7 g/dl (32.0-36.5); MEAN CORPUSCULAR VOLUME 85.4 fl (80.0-96.0); PLATELET COUNT, AUTOMATED 245 10^3/uL (150-450); RED BLOOD COUNT 4.53 10^6/uL (4.00-5.40); WHITE BLOOD COUNT 7.7 10^3/uL (4.0-10.0)
[2023-07-21 13:31] LABS: CREATININE, URINE 120.3 MG/DL; MAU/CREAT RATIO 66.5 MCG/MG (0.0-30.0)
[2023-07-21 13:35] LABS: ALBUMIN 3.7 G/DL (3.2-5.2); ALKALINE PHOSPHATASE 69 U/L (46-116); ALT/SGPT 21 U/L (7.0-40); AST/SGOT 18 U/L (<34); BILIRUBIN,TOTAL 0.2 MG/DL (0.3-1.2); BLOOD UREA NITROGEN 37 MG/DL (9-23); CALCIUM LEVEL 9.7 MG/DL (8.3-10.6); CARBON DIOXIDE LEVEL 29 MMOL/L (20-31); CHLORIDE LEVEL 105 MMOL/L (98-107); CHOLESTEROL LEVEL 199 MG/DL (<200); CHOLESTEROL RISK RATIO 3.51 (<5); GLOMERULAR FILTRATION RATE 50.9 (>32); GLUCOSE, FASTING 63 MG/DL (74-106); HDL CHOLESTEROL 56.6 MG/DL (>40); LDL CHOLESTEROL 96.8 MG/DL (<100); NON-HDL-C 142.4 MG/DL; POTASSIUM SERUM 4.8 MMOL/L (3.5-5.1); SODIUM LEVEL 140 MMOL/L (136-145); TOTAL PROTEIN 6.7 G/DL (5.7-8.2); TRIGLYCERIDES LEVEL 228 MG/DL (<150)
[2023-07-21 13:36] LABS: FOLATE > 24.0 NG/ML (>5.4); THYROID STIMULATING HORMONE 1.821 uIU/ML (0.55-4.78); TOTAL 25(OH) VITAMIN D 16.4 NG/ML (20.0-100.0); VITAMIN B12 LEVEL 533 PG/ML (211-911)
[2023-07-21 14:04] LABS: HEMOGLOBIN A1c 6.2 % (4.0-6.0)
== END ==
LOC: M SFHCADAM 10:08
PROVIDERS: ATTEND Physician Assistant
DX: M48.061 Spinal stenosis, lumbar region without neurogenic claudication (principal); E11.21 Type 2 diabetes mellitus with diabetic nephropathy; I11.9 Hypertensive heart disease without heart failure; J04.0 Acute laryngitis; R80.9 Proteinuria, unspecified; Z79.899 Other long term (current) drug therapy

== ENCOUNTER → 2023-07-22 | Outpatient (CLI) | payer MEDICARE ==
[~2023-07-22] MED LIST changes: +ISOVUE-M 300 61% 15ML VIAL As Ordered ONE; +LIDOCAINE 1% MDV 20ML VIAL As Ordered ONE
[2023-07-22 09:10] VITALS: TEMP 97.5
[2023-07-22 11:00] LABS: INR 1.03; PROTHROMBIN TIME 13.2 SECONDS (12.5-14.5)
[2023-07-22 14:04] VITALS: BP 174/76; O2SAT 96
== END ==
LOC: M IRPRO 08:54
PROVIDERS: ATTEND Orthopaedic Surgery
DX: M48.061 Spinal stenosis, lumbar region without neurogenic claudication (principal); M51.36 Other intervertebral disc degeneration, lumbar region; M47.27 Other spondylosis with radiculopathy, lumbosacral region
CPT/HCPCS: 36415; 62284; 72131; 85610; Q9967

== ENCOUNTER → 2023-08-26 | Outpatient (REF) | payer MEDICARE ==
[~2023-08-26] MED LIST changes: -ISOVUE-M 300 61% 15ML VIAL As Ordered ONE; -LIDOCAINE 1% MDV 20ML VIAL As Ordered ONE
[2023-08-26 14:16] LABS: CALCIUM LEVEL 10.2 MG/DL (8.3-10.6); CREATININE FOR GFR 0.98 MG/DL (0.55-1.30); GLOMERULAR FILTRATION RATE 58.1 (>32); POTASSIUM SERUM 5.4 MMOL/L (3.5-5.1)
== END ==
LOC: M SFHCADAM 09:29
PROVIDERS: ATTEND Physician Assistant
DX: I10 Essential (primary) hypertension (principal)

== ENCOUNTER → 2023-09-11 | Outpatient (REF) | payer MEDICARE ==
[2023-09-11 12:45] LABS: PLATELET COUNT, AUTOMATED 247 10^3/uL (150-450)
[2023-09-11 13:03] LABS: INR 1.04; PARTIAL THROMBOPLASTIN TIME 26.2 SECONDS (24.8-34.2); PROTHROMBIN TIME 13.3 SECONDS (12.5-14.5)
== END ==
LOC: M LABDRWAD 12:12
PROVIDERS: ATTEND Physician Assistant
DX: Z01.818 Encounter for other preprocedural examination (principal); K59.00 Constipation, unspecified; K21.9 Gastro-esophageal reflux disease without esophagitis; E66.9 Obesity, unspecified; R10.13 Epigastric pain; Z68.41 Body mass index [BMI] 40.0-44.9, adult; Z79.82 Long term (current) use of aspirin; Z79.83 Long term (current) use of bisphosphonates; Z79.84 Long term (current) use of oral hypoglycemic drugs; Z79.891 Long term (current) use of opiate analgesic; Z79.899 Other long term (current) drug therapy; Z91.048 Other nonmedicinal substance allergy status; Z87.891 Personal history of nicotine dependence

== ENCOUNTER → 2023-10-07 | Outpatient (REF) | payer MEDICARE ==
[2023-10-07 15:17] LABS: CALCIUM LEVEL 10.2 MG/DL (8.3-10.6); GLOMERULAR FILTRATION RATE 56.8 (>32); POTASSIUM SERUM 5.5 MMOL/L (3.5-5.1)
== END ==
LOC: M SFHCADAM 07:43
PROVIDERS: ATTEND Physician Assistant
DX: E11.21 Type 2 diabetes mellitus with diabetic nephropathy (principal); I10 Essential (primary) hypertension

== ENCOUNTER → 2023-11-03 | Outpatient (REF) | payer MEDICARE ==
[2023-11-03 13:54] LABS: HEMOGLOBIN A1c 6.1 % (4.0-6.0)
[2023-11-03 14:07] LABS: CALCIUM LEVEL 9.8 MG/DL (8.3-10.6); CREATININE FOR GFR 1.1 MG/DL (0.55-1.30); GLOMERULAR FILTRATION RATE 50.9 (>32); POTASSIUM SERUM 5.7 MMOL/L (3.5-5.1)
== END ==
LOC: M SFHCADAM 10:32
PROVIDERS: ATTEND Physician Assistant
DX: E87.5 Hyperkalemia (principal); I10 Essential (primary) hypertension; E11.21 Type 2 diabetes mellitus with diabetic nephropathy

== ENCOUNTER → 2023-11-05 | Outpatient (REF) | payer MEDICARE | LOC: M SFHCADAM 09:45 | PROVIDERS: ATTEND Physician Assistant | DX: E87.5 Hyperkalemia (principal) ==

== ENCOUNTER → 2023-12-16 | Outpatient (REF) | payer MEDICARE ==
[2023-12-16 14:40] LABS: CREATININE FOR GFR 0.98 MG/DL (0.55-1.30); GLOMERULAR FILTRATION RATE 58.1 (>32); POTASSIUM SERUM 4.3 MMOL/L (3.5-5.1)
== END ==
LOC: M LABDRWAD 13:01
PROVIDERS: ATTEND Internal Medicine Cardiovascular Disease
DX: I10 Essential (primary) hypertension (principal)

== ENCOUNTER → 2024-02-03 | Outpatient (REF) | payer MEDICARE ==
[~2024-02-03] MED LIST changes: +GABA-1490 PO; -GABA600T4 PO
== END ==
LOC: M SFHCADAM 07:50
PROVIDERS: ATTEND Physician Assistant
DX: R25.1 Tremor, unspecified (principal); M48.061 Spinal stenosis, lumbar region without neurogenic claudication; E11.21 Type 2 diabetes mellitus with diabetic nephropathy; E87.5 Hyperkalemia; E55.9 Vitamin D deficiency, unspecified

== ENCOUNTER → 2024-02-04 | Outpatient (CLI) | payer MEDICARE | LOC: M PLAIMG 10:25 | PROVIDERS: ATTEND Physician Assistant | DX: R25.1 Tremor, unspecified (principal); R29.898 Other symptoms and signs involving the musculoskeletal system ==

== ENCOUNTER → 2024-02-04 | Outpatient (CLI) | payer MEDICARE ==
[~2024-02-04] MED LIST changes: +GABA-1172 PO; -GABA-282 PO
[2024-02-04 14:00] LABS: ALBUMIN 3.6 G/DL (3.2-5.2); ALKALINE PHOSPHATASE 72 U/L (46-116); ALT/SGPT 18 U/L (7.0-40); AST/SGOT 11 U/L (<34); BILIRUBIN,TOTAL < 0.2 MG/DL (0.3-1.2); BLOOD UREA NITROGEN 26 MG/DL (9-23); CALCIUM LEVEL 10.4 MG/DL (8.3-10.6); CARBON DIOXIDE LEVEL 26 MMOL/L (20-31); CHLORIDE LEVEL 107 MMOL/L (98-107); CREATININE FOR GFR 1.13 MG/DL (0.55-1.30); GLOMERULAR FILTRATION RATE 49.3 (>32); GLUCOSE, FASTING 173 MG/DL (74-106); POTASSIUM SERUM 4.8 MMOL/L (3.5-5.1); SODIUM LEVEL 139 MMOL/L (136-145); TOTAL PROTEIN 6.6 G/DL (5.7-8.2)
[2024-02-04 14:02] LABS: FOLATE 20.8 NG/ML (>5.4); THYROID STIMULATING HORMONE 1.611 uIU/ML (0.55-4.78)
[2024-02-04 14:03] LABS: VITAMIN B12 LEVEL 431 PG/ML (211-911)
[2024-02-04 14:05] LABS: BASO # 0.1 10^3/uL (0.0-0.2); BASO % 0.6 % (0.0-1.0); EOS # 0.2 10^3/uL (0.0-0.5); EOS % 2.2 % (0.0-3.0); HEMATOCRIT 37.4 % (36.0-47.0); HEMOGLOBIN 11.9 g/dl (12.0-15.5); LYMPH # 2.6 10^3/uL (1.5-5.0); LYMPH % 32.3 % (24.0-44.0); MEAN CORPUSCULAR HEMOGLOBIN 27.4 pg (27.0-33.0); MEAN CORPUSCULAR HGB CONC 31.8 g/dl (32.0-36.5); MONO # 0.4 10^3/uL (0.0-0.8); MONO % 4.5 % (2.0-8.0); NEUTROPHILS # 4.9 10^3/uL (1.5-8.5); NEUTROPHILS % 59.9 % (36.0-66.0); PLATELET COUNT, AUTOMATED 273 10^3/uL (150-450); RED BLOOD COUNT 4.35 10^6/uL (4.00-5.40); WHITE BLOOD COUNT 8.2 10^3/uL (4.0-10.0)
[2024-02-08 16:22] LABS: VITAMIN B6,PYRIDOXAL PHOSPHATE 7.5 ng/mL (2.1-21.7)
[2024-02-10 13:18] LABS: VITAMIN E(ALPHA TOCOPHEROL) 12.3 mg/L (5.7-19.9); VITAMIN E(GAMMA TOCOPHEROL) 2.3 mg/L (<=4.3)
== END ==
LOC: M PLALAB 10:31
PROVIDERS: ATTEND Psychiatry & Neurology Neurology
DX: E53.8 Deficiency of other specified B group vitamins (principal); E53.1 Pyridoxine deficiency; E51.9 Thiamine deficiency, unspecified; E56.0 Deficiency of vitamin E; G20.C Parkinsonism, unspecified; Z79.899 Other long term (current) drug therapy

== ENCOUNTER → 2024-02-04 | Outpatient (REF) | payer MEDICARE ==
[~2024-02-04] MED LIST changes: -GABA-1172 PO; +GABA-282 PO
[2024-02-04 19:04] LABS: BASO # 0.1 10^3/uL (0.0-0.2); BASO % 0.7 % (0.0-1.0); EOS # 0.2 10^3/uL (0.0-0.5); EOS % 2.3 % (0.0-3.0); HEMATOCRIT 37.3 % (36.0-47.0); HEMOGLOBIN 11.7 g/dl (12.0-15.5); LYMPH # 2.4 10^3/uL (1.5-5.0); LYMPH % 33.7 % (24.0-44.0); MEAN CORPUSCULAR HGB CONC 31.4 g/dl (32.0-36.5); MEAN CORPUSCULAR VOLUME 86.1 fl (80.0-96.0); MONO # 0.3 10^3/uL (0.0-0.8); MONO % 4.9 % (2.0-8.0); NEUTROPHILS # 4.1 10^3/uL (1.5-8.5); NEUTROPHILS % 58.1 % (36.0-66.0); RED BLOOD COUNT 4.33 10^6/uL (4.00-5.40)
[2024-02-04 19:05] LABS: HEMOGLOBIN A1c 6.6 % (4.0-6.0)
[2024-02-04 19:16] LABS: ALBUMIN 3.6 G/DL (3.2-5.2); ALKALINE PHOSPHATASE 74 U/L (46-116); ALT/SGPT 19 U/L (7.0-40); AST/SGOT 13 U/L (<34); BILIRUBIN,TOTAL < 0.2 MG/DL (0.3-1.2); BLOOD UREA NITROGEN 26 MG/DL (9-23); CALCIUM LEVEL 10.7 MG/DL (8.3-10.6); CARBON DIOXIDE LEVEL 23 MMOL/L (20-31); CHLORIDE LEVEL 108 MMOL/L (98-107); CREATININE FOR GFR 1.05 MG/DL (0.55-1.30); GLOMERULAR FILTRATION RATE 53.7 (>32); GLUCOSE, FASTING 155 MG/DL (74-106); MAGNESIUM LEVEL 1.7 MG/DL (1.8-2.4); POTASSIUM SERUM 4.6 MMOL/L (3.5-5.1); SODIUM LEVEL 138 MMOL/L (136-145); TOTAL PROTEIN 6.6 G/DL (5.7-8.2)
[2024-02-04 19:17] LABS: TOTAL 25(OH) VITAMIN D 28.6 NG/ML (20.0-100.0)
== END ==
LOC: M SFHCADAM 12:24
PROVIDERS: ATTEND Physician Assistant
DX: R25.1 Tremor, unspecified (principal); M48.061 Spinal stenosis, lumbar region without neurogenic claudication; E11.21 Type 2 diabetes mellitus with diabetic nephropathy; E87.5 Hyperkalemia; E55.9 Vitamin D deficiency, unspecified

== ENCOUNTER → 2024-02-10 | Outpatient (REF) | payer MEDICARE ==
[~2024-02-10] MED LIST changes: +GABA-1172 PO; -GABA-282 PO
== END ==
LOC: M SFHCADAM 12:10
PROVIDERS: ATTEND Physician Assistant
DX: E83.52 Hypercalcemia (principal)

== ENCOUNTER → 2024-02-11 | Outpatient (REF) | payer MEDICARE | LOC: M SFHCADAM 09:42 | PROVIDERS: ATTEND Physician Assistant | DX: E83.52 Hypercalcemia (principal) ==

== ENCOUNTER → 2024-08-18 | Outpatient (REF) | payer MEDICARE ==
[2024-08-18 17:57] LABS: APPEARANCE, URINE CLEAR (CLEAR); BACTERIA, URINE AUTO 1+ (NEGATIVE); BILIRUBIN, URINE AUTO NEGATIVE (NEGATIVE); BLOOD, URINE BLOOD NEGATIVE (NEGATIVE); COLOR, URINE YELLOW (YELLOW); GLUCOSE, URINE (UA) AUTO 3+ mg/dL (NEGATIVE); KETONE, URINE AUTO NEGATIVE (NEGATIVE); LEUKOCYTE ESTERASE, URINE AUTO 1+ (NEGATIVE); MUCUS, URINE SMALL (NEGATIVE); NITRITE, URINE AUTO POSITIVE (NEGATIVE); PROTEIN, URINE AUTO NEGATIVE (NEGATIVE); RBC, URINE AUTO 2 /HPF (0-3); SPECIFIC GRAVITY URINE AUTO 1.024 (1.002-1.035); SQUAMOUS EPITHELIAL CELL UR AU 0 /HPF (0-6); UROBILINOGEN, URINE AUTO 0.2 mg/dL (0.0-2.0); WBC, URINE AUTO 18 /HPF (0-3)
[2024-08-18 18:11] LABS: CREATININE, URINE 37.2 MG/DL; MAU/CREAT RATIO 24.1 MCG/MG (0.0-30.0)
[2024-08-18 18:12] LABS: ALBUMIN 3.6 G/DL (3.2-5.2); ALKALINE PHOSPHATASE 90 U/L (35-104); ALT/SGPT < 9 U/L (7.0-40); AST/SGOT < 8 U/L (<34); BILIRUBIN,TOTAL < 0.2 MG/DL (0.3-1.2); BLOOD UREA NITROGEN 29 MG/DL (9-23); CALCIUM LEVEL 10.5 MG/DL (8.3-10.6); CARBON DIOXIDE LEVEL 28 MMOL/L (20-31); CHLORIDE LEVEL 100 MMOL/L (98-107); CREATININE FOR GFR 0.85 MG/DL (0.55-1.30); GLOMERULAR FILTRATION RATE 68.8 (>32); GLUCOSE, FASTING 284 MG/DL (74-106); POTASSIUM SERUM 4.5 MMOL/L (3.5-5.1); SODIUM LEVEL 140 MMOL/L (136-145); TOTAL PROTEIN 6.9 G/DL (5.7-8.2)
[2024-08-18 18:14] LABS: TOTAL 25(OH) VITAMIN D 47.1 NG/ML (20.0-100.0)
== END ==
LOC: M SFHCADAM 15:10
PROVIDERS: ATTEND Physician Assistant
DX: E21.3 Hyperparathyroidism, unspecified (principal); E55.9 Vitamin D deficiency, unspecified; E11.21 Type 2 diabetes mellitus with diabetic nephropathy; R60.0 Localized edema; R35.0 Frequency of micturition; E11.42 Type 2 diabetes mellitus with diabetic polyneuropathy

== ENCOUNTER → 2025-03-07 | Outpatient (REF) | payer MEDICARE ==
[~2025-03-07] MED LIST changes: +LISI40TA10 PO; -LISI40TA4 PO; -PRAV20TA2 PO; +PRAV20TA78 PO
[2025-03-07 14:01] LABS: BASO # 0.1 10^3/uL (0.0-0.2); BASO % 0.6 % (0.0-1.0); EOS # 0.1 10^3/uL (0.0-0.5); EOS % 1.5 % (0.0-3.0); LYMPH # 2.5 10^3/uL (1.5-5.0); LYMPH % 30.5 % (24.0-44.0); MONO # 0.4 10^3/uL (0.0-0.8); MONO % 4.5 % (2.0-8.0); NEUTROPHILS # 5.0 10^3/uL (1.5-8.5); NEUTROPHILS % 62.4 % (36.0-66.0); PLATELET COUNT, AUTOMATED 295 10^3/uL (150-450)
[2025-03-07 14:14] LABS: ESTIMATED AVERAGE GLUCOSE 148.0 MG/DL (60-110)
[2025-03-07 14:32] LABS: ALT/SGPT 9 U/L (7.0-40); AST/SGOT 14 U/L (<34); CALCIUM LEVEL 10.0 MG/DL (8.3-10.6); CARBON DIOXIDE LEVEL 28 MMOL/L (20-31); CHLORIDE LEVEL 99 MMOL/L (98-107); CHOLESTEROL LEVEL 189 MG/DL (<200); CHOLESTEROL RISK RATIO 3.53 (<5); CREATININE FOR GFR 0.83 MG/DL (0.55-1.30); GLOMERULAR FILTRATION RATE 70.8 (>32); NON-HDL-C 135.6 MG/DL; POTASSIUM SERUM 5.0 MMOL/L (3.5-5.1); SODIUM LEVEL 137 MMOL/L (136-145); TRIGLYCERIDES LEVEL 444 MG/DL (<150)
[2025-03-07 14:35] LABS: FREE T4 1.22 NG/DL (0.89-1.76)
== END ==
LOC: M SFHCADAM 11:09
PROVIDERS: ATTEND Physician Assistant
DX: M48.061 Spinal stenosis, lumbar region without neurogenic claudication (principal); G89.29 Other chronic pain; M54.41 Lumbago with sciatica, right side; E78.00 Pure hypercholesterolemia, unspecified; E11.21 Type 2 diabetes mellitus with diabetic nephropathy; I10 Essential (primary) hypertension

== ENCOUNTER → 2025-04-24 | Outpatient (REF) | payer MEDICARE ==
[2025-04-24 14:27] LABS: PLATELET COUNT, AUTOMATED 314 10^3/uL (150-450)
[2025-04-24 15:06] LABS: CALCIUM LEVEL 10.0 MG/DL (8.3-10.6); CARBON DIOXIDE LEVEL 30.0 MMOL/L (20-31); CHLORIDE LEVEL 99.0 MMOL/L (98-107); CREATININE FOR GFR 0.95 MG/DL (0.55-1.30); GLOMERULAR FILTRATION RATE 59.8 (>32); POTASSIUM SERUM 4.8 MMOL/L (3.5-5.1); SODIUM LEVEL 140.0 MMOL/L (136-145)
== END ==
LOC: M SFHCADAM 10:55
PROVIDERS: ATTEND Physician Assistant
DX: M54.16 Radiculopathy, lumbar region (principal)